=== PATIENT | female | born 1950 | race Caucasian/White ===

== ENCOUNTER 2019-07-09 12:36 | Outpatient (CLI) | payer MEDICARE, SELFPAY ==
--- NOTE | 2019-07-09 | XR_ITS ---
WS: [id number] HIP WITH PELVIS LEFT TECHNIQUE: 3 views of the left hip with pelvis CLINICAL INFORMATION: LT HIP PAIN, NO KNOWN INJURY COMPARISON: None. FINDINGS: Moderate degenerative arthritis left hip with joint space narrowing. Normal superior and inferior pub ic rami. Normal femoral neck. Proximal femoral shaft is normal. XR/XR hip LT 2-3V wo/w pel* [id number] IMPRESSION: Moderate degenerative arthritis left hip with joint space narrowing. No acute f ractures.
== END 2019-07-09 12:37 | disposition home or self-care (01) ==
LOC: RADOUTREAD 13:23
PROVIDERS: Family Provider Family Medicine; PCP Family Medicine; Visit Provider Family Medicine
DX: Z76.89 Persons encountering health services in other specified circumstances (principal)

== ENCOUNTER 2020-01-25 22:46 | Emergency (ER) | payer MEDICARE, SELFPAY ==
[2020-01-25 22:50] VITALS: BP 99/61; PULSE 67; RESP 18; TEMP 35.8; O2SAT 96; BMI 29.0
--- NOTE | 2020-01-25 23:00 | W.ED.ALLEREA ---
HPI - Allergic Reaction General: Chief complaint: Allergic Reaction Stated complaint: stung, throat swelling Time Seen by Provider: 01/25/20 22:50 Source: patient Mode of arrival: ambulatory Limitations: no limitations History of Present Illness: HPI narrative: Patient is a 69-year-old female who presents to ED today for evaluation following several wasp stings. Patient tells me she was stung 3 times by a wasp or bee a few hours ago. Patient initially tells me incident happened approximately 5 hours ago around 6 PM but then later tells me around dark which would be closer to 9 PM. She states after she was stung she did not have any immediate symptoms. She went inside and took Benadryl. She states she went to sleep and later woke up feeling like she was having difficulty swallowing her secretions. She has no chest pain, shortness of breath, rash, swelling to her face/lip/mouth. No previous anaphylactic reactions. MD complaint: allergic reaction Onset (ago): hour(s) Exposure: insect bite (sting) Associated symptoms: Deny nausea or vomiting Treatment prior to arrival: benadryl Previous Allergic Reaction History: none Review of Systems Const: Denies: fever(s) or chills Eyes: Denies: change in vision, blurry vision, photophobia, floaters or seeing flashes ENMT: Reports: other (reports feeling as if her throat is swelling); Denies: throat pain, odynophagia, mouth pain or swelling of lips/tongue Card: Denies: chest pain or palpitations Resp: Denies: dyspnea GI: Denies: nausea or vomiting Skin/Breast: Reports: other (wasp/bee stings) Neuro: Denies: headache(s), numbness in extremities, weakness in extremities or sensory changes Physical Exam Const: COMMON NORMALS: no acute distress, average body habitus, patient oriented x3, no limitations, healthy appearing, alert and well nourished ORIENTATION/CONSCIOUSNESS: Yes oriented to person, Yes oriented to place and Yes oriented to time HENMT: FACE & SINUS: normal facial exam MOUTH: other (no angioedema) Neck/C-Spine: COMMON NORMALS: full ROM OTHER: no swelling Resp: COMMON NORMALS: normal respiratory effort and clear to auscultation bilaterally AUSCULTATION: clear to auscultation bilaterally Cardio: COMMON NORMALS: regular rate and regular rhythm RATE: regular rate RHYTHM: regular rhythm Extremity: COMMON NORMALS: normal to inspection OTHER: see skin assessment Neuro: COMMON NORMALS: patient oriented x3 SENSORIUM/ORIENTATION: Yes alert, Yes oriented to person, Yes oriented to place and Yes oriented to time Skin: OTHER: wasp/bee stings to R lateral breast, R upper arm, and L hand; minimal erythema noted Course Vital Signs: Vital signs: Vital Signs Temperature 96.4 F L 01/25/20 22:50 Pulse Rate 67 01/26/20 01:29 Respiratory Rate 15 01/26/20 01:29 Blood Pressure 95/61 01/26/20 01:29 Pulse Oximetry 94 01/26/20 01:29 MDM - Allergic Reaction MDM Narrative: Medical decision making narrative: After cocktail of benadryl, steroids, and pepcid, pt states her throat feels much better and no longer having trouble swallowing. She did begin feeling very anxious, complaining of RLS which she has a hx of. She reports taking benadryl previously and it made her feel very anxious. She was given ativan which did not seem to help. Given haldol which did seem to help a little. I have no concern for anaphylaxis at this time. Patient is stable for DC. Discharge Plan Discharge Patient Disposition: Home Clinical Impression: Accidental wasp sting Allergic reaction Qualifiers: Encounter type: initial encounter Qualified Code(s): T78.40XA - Allergy, unspecified, initial encounter Condition: Stable Discharge Orders: Discharge Order (Routine); Ordered 01/26/20 Ordered By: Darlyn De Leon Referrals: Iam Tyson MD [Primary Care Provider] - Patient Instructions: Allergic Reaction, Insect Bite or Sting (ED) Discharge Date/Time: 01/26/20 01:30 Coding Level of Care Code ED Chrome Worker for Chg Fwd Exam Detailed
[2020-01-25] MEDS: diphenhydrAMINE 50 mg/mL SDV 1mL IVP (23:09)
[2020-01-25 23:10] VITALS: BP 89/57; PULSE 67; RESP 14; O2SAT 92
[2020-01-25] MEDS: famotidine 20 mg/2 mL INJ 40 MG IVP (23:11)
[2020-01-25] MEDS: sodium chloride 0.9% 1,000 ML 999 ML IV (23:29)
[2020-01-25] MEDS: LORazepam 2 mg/mL INJ 1 mL 0.5 MG IVP (23:33)
[2020-01-26] MEDS: haloperidol inj 5 mg/mL INJ 1 mL IVP (01:06)
[2020-01-26 01:07] VITALS: BP 116/63; PULSE 80; RESP 20; O2SAT 98
[2020-01-26 01:29] VITALS: BP 95/61; PULSE 67; RESP 15; O2SAT 94
== END 2020-01-26 01:30 | disposition home or self-care (01) ==
PROVIDERS: Emergency Provider Physician Assistant; PCP Family Medicine
DX: T63.461A Toxic effect of venom of wasps, accidental (unintentional), initial encounter (principal)
CPT/HCPCS: 12345; 96361; 96374; 96375; 99283; J1200; J1630; J2060; J2930; J3490; J7030

== ENCOUNTER 2020-08-16 13:30 | Outpatient (CLI) | payer MEDICARE, SELFPAY ==
--- NOTE | 2020-08-16 13:00 | CT_ITS ---
WS: [id number] CT ABDOMEN PELVIS TECHNIQUE: Contrast-enhanced CT of the abdomen and pelvis with coronal and sagittal reformatted image s. CLINICAL INFORMATION: DIFFUSE ABDOMINAL PAIN COMPARISON: CT 12 10,018 and 3 20,015 DLP: 1153.[address] scans at [facility] use at least one of these dose optimization techniques: automat ed exposure control; mA and/or kV adjustment per patient size (includes targeted exams where dose is matched to clinical indication); or iterative reconstruction. FINDINGS: Diffuse fatty infiltration of the liver. Normal portal vein and splenic vein. Prior cholecystectomy. Small splenule. Adrenal glands are normal. Normal renal parenchymal enhancement. No hydronephrosis. M ild renal cortical atrophy. Normal GE junction. Lung bases are well aerated. Prior postoperative borjas ges hysterectomy. Normal pancreas. Normal caliber abdominal aorta. No abdominal or pelvic lymphadenopathy. No high-grad e small or large bowel obstruction.Mild segmental narrowing and wall thickening involving the right h epatic flexure and right ascending colon. Some this may be due to spasm but is nonspecific and recomm end further evaluation with colonoscopy. Fat-containing umbilical hernia. No hydronephrosis in either kidney. No hydronephrosis. Mild bilatera l renal cortical atrophy. Prior pedicle screw fixation L4-5 with interbody fusion. Advanced disc spac e narrowing L3-4. CT/CT abdomen pelvis w con* [id number] IMPRESSION: 1. Mild diffuse fatty infiltration of the liver. Prior cholecystectomy. 2. Normal caliber abdominal aorta. Mild aortic calcification. 3. Mild bilateral renal cortical atrophy. No hydronephrosis. 4. Mild segmental luminal narrowing and wall thickening involving the right he patic flexure and right ascending colon. Some this may be due to spasm but is n onspecific and recommend further evaluation with colonoscopy. Neoplasm not excl uded. 5. No abdominal or pelvic lymphadenopathy. 6. Normal sigmoid colon. No evidence of small or large bowel obstruction. 7. Tiny fat-containing umbilical hernia. 8. Lumbar scoliosis with prior pedicle screw fixation L4-5.
[2020-08-16] MEDS: iohexol 300 mg/mL 50 mL Btl IV (13:42)
[2020-08-16] MEDS: iodixanol 320 mg/mL 100mL Btl IV (14:29)
== END 2020-08-16 13:31 | disposition home or self-care (01) ==
LOC: RADWPI 13:36
PROVIDERS: PCP Family Medicine; Visit Provider Family Medicine
DX: R10.84 Generalized abdominal pain (principal); M41.86 Other forms of scoliosis, lumbar region; K42.9 Umbilical hernia without obstruction or gangrene; N26.1 Atrophy of kidney (terminal); K76.0 Fatty (change of) liver, not elsewhere classified
CPT/HCPCS: 74177; Q9967

== ENCOUNTER 2021-06-27 09:04 | Outpatient (CLI) | payer MEDICARE, SELFPAY | END 2021-06-27 09:05 | disposition home or self-care (01) | LOC: LAB 09:12 | PROVIDERS: PCP Family Medicine; Visit Provider Family Medicine | DX: R19.7 Diarrhea, unspecified (principal) | CPT/HCPCS: 87493; 87506 ==

== ENCOUNTER 2021-11-28 07:00 | Outpatient (CLI) | payer MEDICARE, SELFPAY ==
--- NOTE | 2021-11-28 | XR_ITS ---
WS: [id number] Left hand, 3 views, 11/28/2021 Clinical Data: BILATERAL HAND PAIN Comparison: None. Findings: No fractures or dislocations are seen. The soft tissues are unremarkable. The joint spaces are normal XR/XR hand LT min 3V* [id number] Impression: Negative left hand.
--- NOTE | 2021-11-28 | XR_ITS ---
WS: [id number] Right hand, 3 views, 11/28/2021 Clinical Data: BILATERAL HAND PAIN Comparison: None. Findings: No fractures or dislocations are seen. The soft tissues are unremarkable. The joint space s are normal XR/XR hand RT min 3V* [id number] Impression: Negative right hand.
--- NOTE | 2021-11-28 | XR_ITS ---
WS: [id number] AP standing views of both knees, 11/28/2021 Clinical Data: KNEE PAIN BILATERAL Comparison: None. Findings: The AP view of the left knee shows medial joint compartment narrowing with spurring of the medial and lateral femoral condyles and medial and lateral tibial plateaus. No fractures or dislocations are se en. AP view of the right knee shows medial and lateral joint compartment narrowing with spurring of the m edial and lateral tibial plateau and the lateral and medial femoral condyle. No fractures or dislocat ions are seen. XR/[place] [id number] Impression: Moderate osteoarthritis of both knees.
== END 2021-11-28 07:01 | disposition home or self-care (01) ==
LOC: RADOUTREAD 11-29 07:09
PROVIDERS: PCP Family Medicine; Visit Provider Family Medicine
DX: M25.561 Pain in right knee (principal); M25.562 Pain in left knee; M79.641 Pain in right hand; M79.642 Pain in left hand; M17.0 Bilateral primary osteoarthritis of knee
CPT/HCPCS: 73130; 73565

== ENCOUNTER 2023-03-05 13:20 | Outpatient (CLI) | payer MEDICARE, SELFPAY ==
--- NOTE | 2023-03-05 13:36 | USCV_ITS ---
Ana Grissom Age: 72 Gender: F : 1950 Exam Date: 03/05/2023 14:15 Ordering Phys: Iam Tyson MD Technologist: Nik Mena Exam Location: [facility] [place] Indication: mitral regur BP: 110 / 70 HR: 57 Rhythm: Sinus Technical Quality: Adequate MEASUREMENTS (Male / Female) Normal Values 2D ECHO LV Diastolic Diameter PLAX 4.6 cm 4.2 - 5.9 / 3.9 - 5.3 cm LV Systolic Diameter PLAX 2.8 cm IVS Diastolic Thickness 1.1 cm 0.6 - 1.0 / 0.6 - 0.9 cm IVS Systolic Thickness 1.1 cm LVPW Diastolic Thickness 1.0 cm 0.6 - 1.0 / 0.6 - 0.9 cm LVPW Systolic Thickness 1.4 cm LVOT Diameter 2.0 cm LV Ejection Fraction 2D Teich 70.8 % LV Ejection Fraction MOD 2C 79.2 % LV Ejection Fraction 2C AL 79.9 % LA Diameter 4.2 cm Aorta at Sinotubular Diameter 3.2 cm IVC Diameter 2.1 cm M-MODE Aortic Annulus Diameter 3.3 cm LA Ao Ratio MM 1.2 MV E Point Septal Separation 0.9 cm DOPPLER LVOT Peak Velocity 102.0 cm/s MV Area PHT 5.0 cm squared Mitral E to A Ratio 0.8 MV E' Velocity 35.0 cm/s Mitral E to MV E' Ratio 8.3 Mitral E to LV E' Lateral Ratio 9.4 Mitral E to LV E' Septal Ratio 7.5 TR Peak Velocity 263.0 cm/s TR Peak Gradient 27.7 mmHg Right Atrial Pressure 3.0 mmHg Pulmonary Artery Systolic Pressu 30.7 mmHg RV Acceleration Time 0.1 s FINDINGS Left Ventricle Normal left ventricular size and systolic function, EF 77 %. No regional wall motion abnormalities. Grade I/IV diastolic dysfunction (abnormal relaxation filling pattern), normal to mildly elevated filling pressures. Right Ventricle The right ventricle is normal in size and function. Right Atrium The right atrium is normal in size. Left Atrium The left atrium is normal in size. Mitral Valve moderate mitral valve regurgitation. Aortic Valve No gross abnormalities noted Tricuspid Valve No gross abnormalities noted Pulmonic Valve No gross abnormalities noted Pericardium Normal pericardium without effusion. Aorta Normal ascending aorta dimension. IVC Normal inferior vena cava. CONCLUSIONS Normal left ventricular size and systolic function, EF 77 %. No regional wall motion abnormalities. Grade I/IV diastolic dysfunction (abnormal relaxation filling pattern), normal to mildly elevated filling . Moderate mitral valve regurgitation. There is no pericardial effusion. There are no intracardiac masses. No previous study is available for comparison Dr Tutu Cisneros MD FAC (Electronically Signed) Final Date: 05 March 2023 20:51 S
== END 2023-03-05 13:21 | disposition home or self-care (01) ==
PROVIDERS: PCP Family Medicine; Visit Provider Family Medicine
DX: I34.0 Nonrheumatic mitral (valve) insufficiency (principal); I51.89 Other ill-defined heart diseases
CPT/HCPCS: 93306

== ENCOUNTER 2023-10-14 11:38 | Outpatient (CLI) | payer MEDICARE, SELFPAY ==
--- NOTE | 2023-10-14 11:43 | CT_ITS ---
WS: [id number] CTA THORACIC AORTA WITH AND WITHOUT CONTRAST HISTORY: ANEURYSM OF THORACIC AORTA TECHNIQUE: CT imaging of the thorax is performed with and without contrast. After noncontrast imaging is performed, CT angiogram is performed during injection of Omnipaque 350; 100 mL IV.. Sagittal and coronal reconstructions, sagittal and coronal MIP imaging is submitted. All CT scans at [facility] use at least one of these dose optimization techniques: automated exposure control; mA and/or k V adjustment per patient size (includes targeted exams where dose is matched to clinical indication); or iterative reconstruction. DLP: 631.04 mGy.cm COMPARISON: None available. Opacification of the thoracic aorta. No aneurysm of the ascending aorta. Maximum transverse diameter of 3.9 cm. There is no dissection or aneurysm. Mild atherosclerotic plaque through the arch. Descendi ng aorta is normal caliber, 2.3 cm. Normal aortic annulus and sinotubular junction. No dissection. Great vessels arise normally from the arch. Mild atherosclerotic plaque. Lungs are clear. No pericardial or pleural effusions. Mild cardiomegaly. Scattered coronary artery ca lcifications most significant in the LAD. No mediastinal or hilar adenopathy. Prior cholecystectomy. No adrenal mass. No chest wall abnormality. CT/CT angio chest [id number] IMPRESSION: 1. No thoracic aortic aneurysm. 2. Mild ectasia ascending aorta with a maximal diameter of 3.9 cm. 3. Mild atherosclerosis thoracic aorta through the arch. 4. Mild coronary artery calcifications. 5. Prior cholecystectomy.
[2023-10-14 12:23] LABS: Blood Urea Nitrogen 6 mg/dL (8-23)
[2023-10-14] MEDS: iohexol 350 mg/mL 500 mL Btl (per mL) IV (12:31)
== END 2023-10-14 11:39 | disposition home or self-care (01) ==
PROVIDERS: Radiology Diagnostic Radiology; PCP Family Medicine; Visit Provider Family Medicine
DX: I77.810 Thoracic aortic ectasia (principal); I25.10 Atherosclerotic heart disease of native coronary artery without angina pectoris
CPT/HCPCS: 71275; 82565; 84520; Q9967

== ENCOUNTER → 2023-12-31 15:01 | Outpatient (BNVA) | payer MEDICARE, SELFPAY | PROVIDERS: PCP Family Medicine; Visit Provider Podiatrist Foot & Ankle Surgery | DX: M25.571 Pain in right ankle and joints of right foot (principal); R50.9 Fever, unspecified; M25.471 Effusion, right ankle | CPT/HCPCS: 20605; 36415; 73610; 80053; 80503; 82164; 85025; 85651; 86160; 86162; 86235; 86255; 86376; 86592; 86618; 86635; 86664; 86665; 86666; 86668; 86705; 86706; 86709; 86757; 86803; 87040; 87070; 87075; 87205; 87340; 87806; 89050; 99204; 99215 ==

== ENCOUNTER 2024-01-01 12:11 | Outpatient (CLI) | payer MEDICARE, SELFPAY ==
[2024-01-03 12:59] LABS: Quantiferon Mitogen 5.91 IU/mL; Quantiferon Nil 0.02 IU/mL; Quantiferon Plus TB1 0.01 IU/mL; Quantiferon Plus TB2 0.01 IU/mL; Quantiferon TB Gold NEGATIVE (NEGATIVE)
== END 2024-01-01 12:12 | disposition home or self-care (01) ==
PROVIDERS: PCP Family Medicine; Visit Provider Student in an Organized Health Care Education/Training Program
DX: Z21 Asymptomatic human immunodeficiency virus [HIV] infection status (principal); R50.9 Fever, unspecified
CPT/HCPCS: 36415; 86480

== ENCOUNTER 2024-01-15 13:00 | Outpatient (CLI) | payer MEDICARE, SELFPAY ==
--- NOTE | 2024-01-15 13:00 | CTR_ITS ---
PROCEDURE INFORMATION: Exam: CT Chest Without Contrast; Diagnostic Exam date and time: 01/15/2024 1:25 PM Age: 73 years old Clinical indication: Fever; Additional info: Fuo, fever of unknown origin x 4 weeks, CT cap to assess for TECHNIQUE: Imaging protocol: Diagnostic computed tomography of the chest without contrast. Radiation optimization: All CT scans at this facility use at least one of these dose optimization techniques: automated exposure control; mA and/or kV adjustment per patient size (includes targeted exams where dose is matched to clinical indication); or iterative reconstruction. COMPARISON: CT angio chest [id number] 10/14/2023 12:23 PM RADIATION DOSE METRICS: Total DLP (mGy-cm): 575.51 FINDINGS: Lungs: Unremarkable. No consolidation. No masses. Pleural spaces: Unremarkable. No pneumothorax. No pleural effusion. Heart: Unremarkable. No cardiomegaly. No pericardial effusion. Lymph nodes: There are a few small mediastinal lymph nodes. No enlarged nodes are appreciated. Vasculature: The ascending aorta is mildly dilated measuring a proximally 4.1 cm in size. The descending thoracic aorta is normal in caliber. There is calcified plaque involving the aorta and coronary vessels. Bones/joints: Unremarkable. No acute fracture. Soft tissues: Unremarkable. PROCEDURE INFORMATION: Exam: CT Abdomen Without Contrast Exam date and time: 01/15/2024 1:25 PM Age: 73 years old Clinical indication: Fever; Additional info: Fuo, fever of unknown origin x 4 weeks, CT cap to assess for TECHNIQUE: Imaging protocol: Computed tomography of the abdomen without contrast. Radiation optimization: All CT scans at this facility use at least one of these dose optimization techniques: automated exposure control; mA and/or kV adjustment per patient size (includes targeted exams where dose is matched to clinical indication); or iterative reconstruction. COMPARISON: CT abdomen pelvis w con* [id number] 08/16/2020 2:27 PM RADIATION DOSE METRICS: Total DLP (mGy-cm): 575.51 FINDINGS: Liver: Normal. No mass. Gallbladder and biliary ducts: There are surgical clips within the gallbladder fossa. Pancreas: Normal. No ductal dilation. Spleen: Normal. No splenomegaly. Adrenal glands: Normal. No mass. Kidneys and ureters: Normal. No hydronephrosis. Stomach and bowel: Visualized stomach and bowel are unremarkable. No obstruction. No mucosal thickening. Intraperitoneal space: Unremarkable. No free air. No significant fluid collection. Vasculature: The aorta is normal in caliber. There is calcified plaque involving the aorta and its branch vessels. Lymph nodes: Unremarkable. No enlarged lymph nodes. Bones/joints: There are postoperative changes involving the lower lumbar spine. No blastic or lytic lesions are identified. Soft tissues: Unremarkable. CT/CT chest abd [id number] IMPRESSION: 1. Atherosclerosis with mild aneurysmal dilatation involving the ascending aorta which measures 4.1 cm in maximal dimension. IMPRESSION: 1. No definite acute findings.
== END 2024-01-15 13:01 | disposition home or self-care (01) ==
PROVIDERS: PCP Family Medicine; Visit Provider Student in an Organized Health Care Education/Training Program
DX: R50.9 Fever, unspecified (principal); I70.0 Atherosclerosis of aorta
CPT/HCPCS: 71250; 74150

== ENCOUNTER → 2024-03-03 14:10 | Outpatient (BNVA) | payer MEDICARE, SELFPAY | PROVIDERS: PCP Family Medicine; Visit Provider Internal Medicine Rheumatology | DX: M19.90 Unspecified osteoarthritis, unspecified site (principal); Z87.39 Personal history of other diseases of the musculoskeletal system and connective tissue; Z79.899 Other long term (current) drug therapy; R76.8 Other specified abnormal immunological findings in serum; Z71.85 Encounter for immunization safety counseling | CPT/HCPCS: 36415; 72100; 72202; 73130; 73630; 84550; 86480; 86704; 86803; 86812; 87340; 99205 ==

== ENCOUNTER 2024-04-01 10:16 | Outpatient (CLI) | payer MEDICARE, SELFPAY ==
[2024-04-01 11:05] LABS: Eosinophils # 0.3 10^3/uL (0.0-0.8); Eosinophils % 6.4 %; Hematocrit 43.6 % (36-47); Lymphocytes # 1.3 10^3/uL (0.8-4.8); Lymphocytes % 29.7 %; Mean Corpuscular HGB Conc 32.1 g/dL (30-55); Mean Corpuscular Hemoglobin 28.8 pg (27-33); Mean Corpuscular Volume 89.7 fl (85-98); Mean Platelet Volume 9.9 fL (7.4-10.4); Monocytes # 0.3 10^3/uL (0.2-0.9); Monocytes % 6.4 %; Neutrophils # 2.36 10^3/uL (1.8-7.7); Nucleated Red Blood Cells % 0 %; Platelet Count 179 10^3/cmm (157-399); Red Blood Count 4.86 10^6/uL (3.85-5.65); Red Cell Distribution Width 13.2 % (12.1-15.1); White Blood Count 4.21 10^3/uL (3.29-11.43)
[2024-04-01 11:08] LABS: Erythrocyte Sedimentation Rate 1 mm/hr (0-15)
[2024-04-01 11:24] LABS: Alanine Aminotransferase 49 U/L (0-33); Albumin Level 4.3 g/dL (3.5-5.2); Alkaline Phosphatase 132 U/L (35-105); Aspartate Amino Transferase 36 U/L (0-32); C Reactive Protein 8.4 mg/L (0.0-4.9); Globulin 2.2 g/dL (1.3-4.6); Total Bilirubin 0.4 mg/dL (0.15-1.2); Total Protein 6.5 g/dL (6.6-8.7)
== END 2024-04-01 10:17 | disposition home or self-care (01) ==
LOC: LAB 10:17
PROVIDERS: PCP Family Medicine; Visit Provider Internal Medicine Rheumatology
DX: Z79.899 Other long term (current) drug therapy (principal); M19.90 Unspecified osteoarthritis, unspecified site
CPT/HCPCS: 36415; 80076; 82565; 84550; 85025; 85651; 86140

== ENCOUNTER → 2024-05-11 12:58 | Outpatient (BNVA) | payer MEDICARE, SELFPAY | PROVIDERS: PCP Family Medicine; Visit Provider Internal Medicine Rheumatology | DX: Z79.899 Other long term (current) drug therapy (principal); Z87.39 Personal history of other diseases of the musculoskeletal system and connective tissue; R76.8 Other specified abnormal immunological findings in serum; Z71.85 Encounter for immunization safety counseling; M10.9 Gout, unspecified; M00.80 Arthritis due to other bacteria, unspecified joint | CPT/HCPCS: 99214 ==

== ENCOUNTER 2024-09-17 07:44 | Outpatient (CLI) | payer MEDICARE, SELFPAY ==
--- NOTE | 2024-09-17 07:49 | MR_ITS ---
WS: [id number] MRI/MRCP OF THE ABDOMEN WITHOUT GADOLINIUM ENHANCEMENT TECHNIQUE: Coronal T2 Fase BH, Axial T2 Fase BH, Axial T2 FS BH, Zxial 3D Bronson BH, Axial DWI BH, 2D MRCP Radial BH, 3D MRCP (Resp), and Axial 3D Dyn BH Post sequences. CLINICAL INFORMATION: LIVER LESION COMPARISON: Ultrasound 09/03/2024 FINDINGS: Some images are degraded due to body habitus and breath-holding artifact. Hepatomegaly. Diffuse fatty infiltration of liver. No visualized liver lesions to correspond to the ultrasound findings. No visualized liver lesions in the RIGHT or LEFT hepatic lobe. Some images of the liver are degraded due to breath- hold artifact. Prior cholecystectomy. Portal vein and splenic vein are patent. Adrenal glands are normal. No hydronephrosis. Normal visualized pancreas. Small esophageal hiatal hernia. Normal visualized spleen. MR/MR abdomen wo/w con* [id number] Impression: No hepatic lesions corresponding to the ultrasound findings. Recommend 3-month follow-up ultrasound of the liver for comparison
[2024-09-17] MEDS: gadobenate dimeglumine 20 mL vial 16 ML IV (08:36)
== END 2024-09-17 07:45 | disposition home or self-care (01) ==
LOC: RAD 07:47
PROVIDERS: PCP Family Medicine; Visit Provider Family Medicine
DX: K76.9 Liver disease, unspecified (principal); R16.0 Hepatomegaly, not elsewhere classified; K76.0 Fatty (change of) liver, not elsewhere classified; Z90.49 Acquired absence of other specified parts of digestive tract; K44.9 Diaphragmatic hernia without obstruction or gangrene
CPT/HCPCS: 74183; A9577

== ENCOUNTER → 2024-10-12 12:52 | Outpatient (BNVA) | payer MEDICARE, SELFPAY | PROVIDERS: PCP Family Medicine; Visit Provider Internal Medicine Rheumatology | DX: M19.90 Unspecified osteoarthritis, unspecified site (principal); Z79.899 Other long term (current) drug therapy; Z87.39 Personal history of other diseases of the musculoskeletal system and connective tissue; R76.8 Other specified abnormal immunological findings in serum; Z71.85 Encounter for immunization safety counseling | CPT/HCPCS: 36415; 80076; 82565; 83520; 84550; 85025; 85651; 86140; 86200; 86431; 86480; 86704; 86803; 87340; 99214 ==

== ENCOUNTER 2025-02-03 08:15 | Emergency (ER) | payer MEDICARE, SELFPAY ==
--- NOTE | 2025-02-03 08:17 | XR_ITS ---
WS: [id number] KUB, AP portable supine, 02/03/2025 Clinical Data: Abdominal pain/constipation Comparison: KUB, 09/20/2023 Findings: No abnormal intraabdominal masses or calcifications are seen. There is no dilatated small bowel or evidence of obstruction. There are clothing items overlying the upper abdomen and left side of the abdomen. There are clips in the right upper quadrant from a cholecystectomy. There is moderate fecal material throughout the colon. There is a dextroscoliosis with a posterior lumbar fusion at L4-L5. XR/XR KUB portable [id number] Impression: Moderate fecal material in the colon.
--- OUTSIDE RECORDS SUMMARY | 2025-02-03 08:22 | XMS_ITS | Clinical Summary ---
Author Organization [facility] Address [address] [facility] [facility] Attn: [place] [address] Care Team Providers Care Customer Service Driver Name Role Phone Iam Tyson MD Primary Care Provider [phone] Allergies Active Allergy Reactions Criticality Noted Date Comments Sulfa (Sulfonamide Antibiotics) Unknown 02/15 Medications OTHER Prednisolone 1%, Gatifloxacin 0.5%, Ketorolac 0.5% Start 3 days before surgery 1 drop 3 times a day in surgical eye for 24 days.. 3.5 mL 1 8 Active sodium chloride (DEAN-128) 5 % solution Administer 1 Drop in both eyes 3 times daily. 15 mL 3 8 Active amLODIPine (NORVASC) 2.5 mg tablet Take 2.5 mg by mouth daily. 8 Active cyanocobalamin (VITAMIN B-12) 100 mcg tablet Take 100 mcg by mouth daily. 8 Active ketotifen (ZADITOR) 0.025% solution 8 Active tiZANidine (ZANAFLEX) 4 mg Tablet Take 4 mg by mouth every 6 hours as needed for Spasm. 8 Active aspirin (ECOTRIN EC) 325 mg Tablet, Delayed Release (E.C.) Take 325 mg by mouth daily. 8 Active metoprolol tartrate (LOPRESSOR) 50 mg tablet Take 50 mg by mouth 2 times daily. 8 Active spironolactone (ALDACTONE) 100 mg tablet Take 100 mg by mouth daily. 8 Active melatonin 5 mg Tablet Take by mouth nightly as needed. 8 Active peg 400-propylene glycol (SYSTANE) 0.4-0.3 % solution 1 Drop every 2 hours. Active raNITIdine (ZANTAC) 150 mg tablet Take 150 mg by mouth 2 times daily. Active escitalopram oxalate (LEXAPRO) 10 mg tablet Take 10 mg by mouth daily. Active ezetimibe-simva statin (VYTORIN) 10-10 mg tablet Take 1 Tablet by mouth daily at bedtime. Active ALPRAZolam (XANAX) 0.5 mg tablet Take 0.5 mg by mouth nightly as needed for Anxiety. Active Levothyroxine 25 mcg Capsule Take by mouth daily before breakfast. Active Social History Tobacco Use Types Packs/Day Years Used Date Smoking Tobacco: Never Smokeless Tobacco: Never Alcohol Use Standard Drinks/Week Comments No 0 (1 standard drink = 0.6 oz pur e alcohol) Comments Unknown Sex and Gender Information Value Date Recorded Sex Assigned at Not on file Legal Sex Female 3:53 PM [employer] Gender Identity Not on file Sexual Orientation Not on file Last Filed Vital Signs Vital Sign Reading Time Taken Comments Blood Pressure 142/96 04/02/2018 4:35 PM CDT Pulse 64 04/02/2018 3:03 PM CDT Temperature 36.7 C (98.1 F) 04/02/2018 3:03 PM CDT Respiratory Rate 18 04/02/2018 12:00 PM CDT Oxygen Saturation - - Inhaled Oxygen Concentration - - Weight 78 kg (172 lb) 04/02/2018 4:35 PM CDT Height 174 cm (5' 8.5 ) 04/02/2018 4:35 PM CDT Body Mass Index 25.77 04/02/2018 4:35 PM CDT Plan of Treatment Health Maintenance Due Date Last Done Comments DTAP/TDAP/TD VACCINES (1 - Tdap) 1968 FIT-DNA Q 3 years 1994 FIT/FOBT Q 1 year 1994 Flex Sig/CT Colonography Q 5 years 1994 PNEUMOCOCCAL VACCINE 50+ YEA RS (1 of 1 - PCV) 1999 ZOSTER VACCINE (1 of 2) 1999 OSTEOPOROSIS SCREENING 2014 RSV VACCINE (60+ or ) (1 - 1-dose 75+ series) 2024 INFLUENZA VACCINE (#1) 2025 COLORECTAL SCREENING 10/06/2033 10/07/2023, 10/07/19 24 Colorectal Cancer Screening 10/06/2033 Medical Devices Implanted Type Area Case Mgr Device Identifier Shelf Expiration Date Model / Serial / Lot Lens Io Tecnis 1pc 22.5 [id number] - [id number] Implanted:Qty: 1 on 03/19/2018 by Simone Redding MD Eye Right: Eye [employer] 11/19/2021 [id number] / [id number] / Lens Io Tecnis 1pc 23.5 [id number] - [id number] Implanted:Qty: 1 on 04/02/2018 by Simone Redding MD Eye Left: Eye [employer] 12/03/2021 [id number] / [id number] / Care Teams Customer Service Driver Relationship Specialty Start Date End Date Iam Tyson MD [address] [phone] PCP - General Family Practice 03/06/18
--- OUTSIDE RECORDS SUMMARY | 2025-02-03 08:22 | XMS_ITS | Clinical Summary ---
Author Organization [facility] Address [address] [place] [address] Care Team Providers Care Superintendent Name Role Phone Iam Tyson MD Primary Care Provider [phone] Allergies Active Allergy Reactions Criticality Noted Date Comments Sulfa (Sulfonamide Antibiotics) Unknown 02/15 Medications metoprolol tartrate (LOPRESSOR) 50 mg tablet Take 50 mg by mouth 2 times daily. Active amLODIPine (NORVASC) 2.5 mg tablet Take 2.5 mg by mouth daily. Active spironolactone (ALDACTONE) 100 mg tablet Take 100 mg by mouth daily. Active Levothyroxine 25 mcg Capsule Take by mouth daily before breakfast. Active ezetimibe-simva statin (VYTORIN) 10-10 mg tablet Take 1 Tablet by mouth daily at bedtime. Active escitalopram oxalate (LEXAPRO) 10 mg tablet Take 10 mg by mouth daily. Active tiZANidine (ZANAFLEX) 4 mg Tablet Take 4 mg by mouth every 6 hours as needed for Spasm. Active ALPRAZolam (XANAX) 0.5 mg tablet Take 0.5 mg by mouth nightly as needed for Anxiety. Active melatonin 5 mg Tablet Take by mouth nightly as needed. Active cyanocobalamin (VITAMIN B-12) 100 mcg tablet Take 100 mcg by mouth daily. Active raNITIdine (ZANTAC) 150 mg tablet Take 150 mg by mouth 2 times daily. Active aspirin (ECOTRIN EC) 325 mg Tablet, Delayed Release (E.C.) Take 325 mg by mouth daily. Active ketotifen (ALAWAY) 0.025 % (0.035 %) solution Active peg 400-propylene glycol (SYSTANE) 0.4-0.3 % solution 1 Drop every 2 hours. Active OTHER Prednisolone 1%, Gatifloxacin 0.5%, Ketorolac 0.5% Start 3 days before surgery 1 drop 3 times a day in surgical eye for 24 days.. 3.5 mL 1 8 Active sodium chloride (DEAN-128) 5 % solution Administer 1 Drop in both eyes 3 times daily. 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[employer]ER Gender Identity Not on file Sexual Orientation Not on file Last Filed Vital Signs Vital Sign Reading Time Taken Comments Blood Pressure 142/96 04/02/2018 4:35 PM CDT Pulse 64 04/02/2018 3:03 PM CDT Temperature 36.7 C (98.1 F) 04/02/2018 3:03 PM CDT Respiratory Rate 18 04/02/2018 12:00 PM CDT Oxygen Saturation 97% 04/02/2018 3:03 PM CDT Inhaled Oxygen Concentration - - Weight 78 kg (172 lb) 04/02/2018 4:35 PM CDT Height 174 cm (5' 8.5 ) 04/02/2018 4:35 PM CDT Body Mass Index 25.77 04/02/2018 4:35 PM CDT Plan of Treatment Health Maintenance Due Date Last Done Comments DTAP/TDAP/TD VACCINES (1 - Tdap) 1968 COLORECTAL SCREENING 1994 Colorectal Cancer Screening 1994 FIT-DNA Q 3 years 1994 FIT/FOBT Q 1 year 1994 Flex Sig/CT Colonography Q 5 years 1994 PNEUMOCOCCAL VACCINE 50+ YEARS (1 of 1 - PCV) 06/23/19 00 ZOSTER VACCINE (1 of 2) 1999 OSTEOPOROSIS SCREENING 2014 RSV VACCINE (60+ or ) (1 - 1-dose 75+ series) 2024 INFLUENZA VACCINE (#1) 2025 Medical Devices Implanted Type Area Compliance Tester Device Identifier Shelf Expiration Date Model / Serial / Lot Lens Io Tecnis 1pc 22.5 [id number] - [id number] Implanted:Qty: 1 on 03/19/2018 by Simone Redding MD at [facility] Right: Eye [employer] 11/19/2021 [id number] / [id number] / Lens Io Tecnis 1pc 23.5 [id number] - [id number] Implanted:Qty: 1 on 04/02/2018 by Simnoe Redding MD at [facility] Left: Eye [employer] 12/03/2021 [id number] / [id number] / Insurance [facility] Advance Directives For more information, please contact: [phone] * Full Code (Latest Code Status on File) Date Activated Date Inactivated Comments 04/02/2018 11:59 AM 04/02/2018 5:26 PM * Full Code Date Activated Date Inactivated Comments 03/19/2018 8:53 AM 03/19/2018 1:38 PM Care Teams Superintendent Relationship Specialty Start Date End Date Iam Tyson MD [address] [place] [id number] PCP - General Family Practice 03/06/18
[2025-02-03 08:36] VITALS: PULSE 58; RESP 18; TEMP 36.5; O2SAT 95
--- NOTE | 2025-02-03 08:45 | W.ED.ABDPA2 ---
HPI - Abdominal Pain General: Chief Complaint: Abdominal Pain Stated Complaint: backed up no bowl movements Time Seen by Provider: 02/03/25 08:17 History of Present Illness: 74-year-old female presents emergency room with complaints constipation. She states she tried different [id number] medications with no relief she said she has not had a bowel movement in 10 or more days. She has not had any vomiting. She states she has alpha gal. She is worried that if she has surgery she will spontaneously evacuate her bowels. However when I ask her she does not have any surgery scheduled. She denies any medic easy melena hematemesis or coffee-ground emesis no fever sweats or chills. Associated Symptoms: Reports constipation; Denies chills, diarrhea, dysuria, fever(s), nausea and vomiting Related Data Home Medications ?Medication ?Instructions ?Recorded ?Confirmed ezetimibe 10 mg tablet 10 mg PO DAILY 12/31/23 02/03/25 fluoxetine 10 mg capsule 10 mg PO DAILY 12/31/23 02/03/25 levothyroxine 50 mcg tablet 50 mcg PO QAM 12/31/23 02/03/25 tizanidine 4 mg tablet mg PO 12/31/23 10/12/24 dicyclomine 10 mg capsule 10 mg PO BID 03/03/24 02/03/25 magnesium 250 mg tablet 500 mg PO DAILY 03/03/24 02/03/25 metoprolol tartrate 25 mg tablet 25 mg PO BID 02/03/25 02/03/25 Previous Rx's ?Medication ?Instructions ?Recorded pantoprazole 40 mg tablet,delayed 40 mg PO DAILY #90 tabs 03/03/24 release prednisone 5 mg tablet See Rx Instructions PO .COMPLEX 10/12/24 PRN joint pain flare #30 tabs tramadol 50 mg tablet 50 mg PO BID PRN pain (scale score 10/19/24 7-10) #14 tabs tramadol 50 mg tablet 50 mg PO BID PRN pain (scale score 10/19/24 7-10) #60 tabs lactulose 10 gram/15 mL oral 30 ml PO Q2H PRN constipation 72 02/03/25 solution (Generlac) hours #1,080 mL Allergies Allergy/AdvReac Type Severity Reaction Status Date / Time Sulfa (Sulfonamide Allergy Severe ALGY-Rash Verified 10/12/24 13:36 Antibiotics) bee venom protein (honey bee) Allergy Intermediate ALGY-Swell Verified 10/12/24 13:36 Lip/Tongue/Throat Alpha-Gal Allergy Unknown Verified 02/03/25 08:43 (Vsocvxnfd-Ocqmt-3,3-Gala allopurinol AdvReac Intermediate tongue raw Verified 10/12/24 13:36 and loss of taste colchicine AdvReac Intermediate ADR-Dry Verified 10/12/24 17:28 Mucus Membranes febuxostat AdvReac Intermediate ADR-Dry Verified 10/12/24 17:28 Mucus Membranes Review of Systems Const: Denies: fever(s) or chills Card: Denies: chest pain Resp: Denies: dyspnea GI: Reports: abdominal pain and constipation; Denies: nausea, vomiting or diarrhea : Denies: dysuria, urinary frequency or urinary urgency Musc: Denies: neck pain or back pain Skin/Breast: Denies: rash PFSH ED PFSH: Medical History (Updated 02/03/25 @ 11:23 by Jose Wells DO) Immunization counseling Positive JEN (antinuclear antibody) High risk medication use Hx of gout Inflammatory arthritis Osteoarthritis Fibromyalgia Hypertension Tachycardia Aortic aneurysm Surgical History History of partial thyroidectomy Previous back surgery Hx of hysterectomy Hx of cholecystectomy Hx of hemorrhoidectomy Hx of section Hx of knee surgery Social History Smoking and tobacco/nicotine status: never used tobacco/nicotine Alcohol intake: never Substance/Drug Use: never Physical Exam Const: COMMON NORMALS: no acute distress GENERAL APPEARANCE: cooperative and comfortable ORIENTATION/CONSCIOUSNESS: Yes awake, Yes oriented to person, Yes oriented to place and Yes oriented to time HENMT: COMMON NORMALS: normocephalic, atraumatic and hearing grossly normal bilaterally HEAD & SCALP: normocephalic and atraumatic Resp: COMMON NORMALS: normal respiratory effort, No retractions, No use of accessory muscles and clear to auscultation bilaterally AUSCULTATION: clear to auscultation bilaterally Cardio: COMMON NORMALS: regular rate, regular rhythm and No murmurs present (Cardio) RATE: regular rate RHYTHM: regular rhythm GI: COMMON NORMALS: Soft to palpation and No hepatosplenomegaly present AUSCULTATION: Yes normoactive bowel sounds PALPATION: Yes Soft to palpation, No Tenderness to palpation present (GI), No Guarding due to palpation present (GI) and Yes No hepatosplenomegaly present Extremity: COMMON NORMALS: normal to inspection, capillary refill normal, no clubbing, cyanosis or edema, no calf tenderness and no pedal edema Neuro: SENSORIUM/ORIENTATION: Yes oriented to person, Yes oriented to place and Yes oriented to time Skin: COMMON NORMALS: no rashes or lesions noted GENERAL SKIN EXAM: no rashes or lesions noted Course Vital Signs: Vital signs: Vital Signs Temperature 97.7 F 02/03/25 08:36 Pulse Rate 48 L 02/03/25 10:54 Respiratory Rate 18 02/03/25 08:36 Blood Pressure 142/78 02/03/25 10:54 Pulse Oximetry 92 02/03/25 10:54 Oxygen Delivery Me thod Room Air 02/03/25 10:54 MDM - Abdominal Pain Medical Decision Making Patient has right-sided constipation no obstruction masses noted on the CT. Remainder labs otherwise unremarkable. Will discharge patient home with lactulose to use for relief of constipation follow-up with primary care. Has pill endoscopy pill as noted on the CT. Complete pill endoscopy as planned Medical Records I reviewed the patient's medical records. Lab Data I reviewed the patient's lab results. 02/03/25 09:05 02/03/25 09:05 Labs/Radiology: Radiology Impressions KUB X-Ray 02/03/25 08:17 Impression: Moderate fecal material in the colon. Abdomen/Pelvis CT 02/03/25 09:18 IMPRESSION: 1. Moderate constipation. Greatest fecal retention in the RIGHT colon and at the rectum. No obstructing lesion identified. 2. Foreign body within the stomach. Patient provided history of a recent capsule endoscopy. This may be the capsule remaining within the stomach. 3. No renal obstruction. 4. Mild atherosclerosis aorta. 5. Prior cholecystectomy. Laboratory Results WBC 5.00 10^3/uL (3.29-11.43) 02/03/25 09:05 RBC 4.56 10^6/uL (3.85-5.65) 02/03/25 09:05 Hgb 13.20 g/dL (11.27-16.99) 02/03/25 09:05 Hct 39.9 % (36-47) 02/03/25 09:05 MCV 87.5 fl (85-98) 02/03/25 09:05 MCH 28.9 pg (27-33) 02/03/25 09:05 MCHC 33.1 g/dL (30-55) 02/03/25 09:05 RDW 13.4 % (12.1-15.1) 02/03/25 09:05 Plt Count 173 10^3/cmm (157-399) 02/03/25 09:05 MPV 9.8 fL (7.4-10.4) 02/03/25 09:05 Neut % (Auto) 59.2 % 02/03/25 09:05 Lymph % (Auto) 23.6 % 02/03/25 09:05 [place] % (Auto) 9.6 % 02/03/25 09:05 Eos % (Auto) 5.8 % 02/03/25 09:05 Baso % (Auto) 1.4 % 02/03/25 09:05 Neut # (Auto) 2.96 10^3/uL (1.8-7.7) 02/03/25 09:05 Lymph # (Auto) 1.2 10^3/uL (0.8-4.8) 02/03/25 09:05 [place] # (Auto) 0.5 10^3/uL (0.2-0.9) 02/03/25 09:05 Eos # (Auto) 0.3 10^3/uL (0.0-0.8) 02/03/25 09:05 Baso # (Auto) 0.1 10^3/uL (0.0-0.1) 02/03/25 09:05 Nucleated RBC % (auto) 0 % 02/03/25 09:05 Nucleated RBCs # 0.0 /100WBC 02/03/25 09:05 Sodium 138 mmol/L (136-145) 02/03/25 09:05 Potassium 3.7 mmol/L (3.5-5.1) 02/03/25 09:05 Chloride 100 mmol/L (98-107) 02/03/25 09:05 Carbon Dioxide 29 mmol/L (22-29) 02/03/25 09:05 Anion Gap 12.7 (5-19) 02/03/25 09:05 BUN 8 mg/dL (8-23) 02/03/25 09:05 Creatinine 0.8 mg/dL (0.5-0.9) 02/03/25 09:05 GFR Calculation Not Reportable 02/03/25 09:05 Glucose 156 mg/dL (65-115) H 02/03/25 09:05 Calculated Osmolality 288 mOsm/kg (285-295) 02/03/25 09:05 Calcium 9.0 mg/dL (8.5-10.5) 02/03/25 09:05 Total Bilirubin 0.5 mg/dL (0.15-1.2) 02/03/25 09:05 AST 23 U/L (0-32) 02/03/25 09:05 ALT 19 U/L (0-33) 02/03/25 09:05 Alkaline Phosphatase 115 U/L (35-105) H 02/03/25 09:05 Total Protein 6.0 g/dL (6.6-8.7) L 02/03/25 09:05 Albumin 3.7 g/dL (3.5-5.2) 02/03/25 09:05 Globulin 2.3 g/dL (1.3-4.6) 02/03/25 09:05 Urine Color Yellow (Yellow) 02/03/25 10:13 Urine Appearance Cloudy (CLEAR) A 02/03/25 10:13 Urine pH 7.5 (5-7) 02/03/25 10:13 Ur Specific [place] 1.009 (1.005-1.030) 02/03/25 10:13 Urine Protein Negative (Negative) 02/03/25 10:13 Urine Glucose (UA) Negative (Normal) 02/03/25 10:13 Urine Ketones Negative (Negative) 02/03/25 10:13 Urine Blood Negative (Negative) 02/03/25 10:13 Urine Nitrate Negative (Negative) 02/03/25 10:13 Urine Bilirubin Negative (Negative) 02/03/25 10:13 Urine Urobilinogen 1.0 mg/dL (Negative) 02/03/25 10:13 Ur Leukocyte Esterase 1+ (Negative) A 02/03/25 10:13 Urine RBC 0-2 /hpf (0-2) 02/03/25 10:13 Urine WBC 11-20 /hpf (0-5) H 02/03/25 10:13 Ur Squamous Epith Cells 0-5 /hpf (0-5) 02/03/25 10:13 Amorphous Sediment Not Reportable 02/03/25 10:13 Urine Bacteria None seen /hpf (NONE) 02/03/25 10:13 Hyaline Casts 0.40 /lpf 02/03/25 10:13 All radiology interpretation(s) finalized by discharge Discharge Plan Discharge Patient Disposition: Home Clinical Impression: Constipation Condition: Stable Prescriptions: New lactulose [Generlac] 10 gram/15 mL solution 30 ml PO Q2H PRN (Reason: constipation) 3 Days Qty: 1080 0RF Rx Instructions: until desired laxative effect No Action magnesium 250 mg tablet 500 mg PO DAILY pantoprazole 40 mg tablet,delayed release (DR/EC) 40 mg PO DAILY Qty: 90 1RF ezetimibe 10 mg tablet 10 mg PO DAILY levothyroxine 50 mcg tablet 50 mcg PO QAM fluoxetine 10 mg capsule 10 mg PO DAILY tizanidine 4 mg tablet PO dicyclomine 10 mg capsule 10 mg PO BID prednisone 5 mg tablet See Rx Instructions PO .COMPLEX PRN (Reason: joint pain flare) Qty: 30 1RF Rx Instructions: take 1-4 tabs daily for up to 7 days prn joint pain flare orally PRN; tramadol 50 mg tablet 50 mg PO BID PRN (Reason: pain (scale score 7-10)) Qty: 14 0RF Rx Instructions: 7day trial tramadol 50 mg tablet 50 mg PO BID PRN (Reason: pain (scale score 7-10)) Qty: 60 1RF metoprolol tartrate 25 mg tablet 25 mg PO BID Discharge Orders: Discharge ED (Routine); Ordered 02/03/25 Ordered By: Jose Wells Referrals: Iam Tyson MD [Primary Care Provider, Family Practice] Discharge Diet: Clear Liquid Discharge Activity: Increase activity as tolerated Patient Instructions: Constipation (ED), Opioid Safety, Pain Management, Patient Portal & Tammy Instructions Activity Restrictions/Additional Instructions: Thank you for choosing [facility] for your healthcare needs today. It is very important that you follow up as instructed or that you return to the Emergency Department should you have concerns or if your condition changes or worsens in any way. You were seen with concerns about constipation there is quite a bit of constipation with retained stool in the right side your colon enema will not particularly help. Recommend that you use lactulose 1 dose every 2 hours until adequate results achieved follow-up with your primary care doctor the CT did not show any significant pathology Print Language: Estonian Coding Level of Care Code ED Supervisor Cloth Winding for Moon Epperson
[2025-02-03 09:13] LABS: Hematocrit 39.9 % (36-47); Hemoglobin 13.20 g/dL (11.27-16.99); Mean Corpuscular HGB Conc 33.1 g/dL (30-55); Mean Corpuscular Hemoglobin 28.9 pg (27-33); Mean Corpuscular Volume 87.5 fl (85-98); Nucleated Red Blood Cells % 0 %; Platelet Count 173 10^3/cmm (157-399); Red Blood Count 4.56 10^6/uL (3.85-5.65); White Blood Count 5.00 10^3/uL (3.29-11.43)
--- NOTE | 2025-02-03 09:18 | CT_ITS ---
WS: [id number] CT ABDOMEN AND PELVIS NONCONTRAST HISTORY: Abdominal pain change in bowel movement TECHNIQUE: Imaging performed through the abdomen and pelvis. Coronal and sagittal reformats are submitted. All CT scans at [facility] use at least one of these dose optimization techniques: automated exposure control; mA and/or kV adjustment per patient size (includes targeted exams where dose is matched to clinical indication); or iterative reconstruction. DLP: 660.36 mGy.cm COMPARISON: 08/16/2020 Lower thorax: Lung bases are clear. Visualized heart is normal. No hiatal hernia. Liver: Normal size liver. No mass or bile duct dilatation. Gallbladder: Prior cholecystectomy. Pancreas: Normal size and attenuation. Normal pancreatic duct. No pancreatitis or mass. Spleen: Normal. Adrenal glands: Normal. No mass. Right kidney: Perinephric stranding. No obstruction. Left kidney: Perinephric stranding with no obstruction. Aorta: Mild atherosclerosis abdominal aorta with no aneurysm. No free fluid, intraperitoneal air or significant lymphadenopathy. GI tract: Nondistended stomach. There is a metallic foreign body within the stomach. Patient did provide a history of recent capsule endoscopy. This may be the capsule remaining within the stomach. No small bowel obstruction. Moderate constipation. Increased fecal material in the RIGHT colon. Increased fecal material in the rectum. No colitis or wall thickening. Negative appendix. Abdominal wall: Small umbilical hernia contains fat only. Pelvis: Well-distended urinary bladder. Prior hysterectomy. Osseous structures: Posterior lumbar fusion at L4-5. Degenerative scoliosis lumbar spine. CT/CT abdomen pelvis wo con [id number] IMPRESSION: 1. Moderate constipation. Greatest fecal retention in the RIGHT colon and at t he rectum. No obstructing lesion identified. 2. Foreign body within the stomach. Patient provided history of a recent capsu le endoscopy. This may be the capsule remaining within the stomach. 3. No renal obstruction. 4. Mild atherosclerosis aorta. 5. Prior cholecystectomy.
[2025-02-03 09:32] LABS: Alanine Aminotransferase 19 U/L (0-33); Albumin Level 3.7 g/dL (3.5-5.2); Alkaline Phosphatase 115 U/L (35-105); Anion Gap 12.7 (5-19); Aspartate Amino Transferase 23 U/L (0-32); Blood Urea Nitrogen 8 mg/dL (8-23); Calcium 9.0 mg/dL (8.5-10.5); Carbon Dioxide 29 mmol/L (22-29); Chloride 100 mmol/L (98-107); Creatinine Clr Calc Pharmacy 63.5402; Globulin 2.3 g/dL (1.3-4.6); Glucose 156 mg/dL (65-115); Osmolality Calculated 288 mOsm/kg (285-295); Potassium 3.7 mmol/L (3.5-5.1); Sodium 138 mmol/L (136-145); Total Protein 6.0 g/dL (6.6-8.7)
[2025-02-03 10:32] LABS: Glucose Urine UA Negative (Normal); Nitrate Urine Negative (Negative); Specific Gravity, Urine 1.009 (1.005-1.030)
[2025-02-03 10:34] LABS: Add Urine Microscopic? YES
[2025-02-03 10:54] VITALS: BP 142/78; PULSE 48; O2SAT 92
== END 2025-02-03 12:41 | disposition home or self-care (01) ==
PROVIDERS: Emergency Provider Family Medicine; PCP Family Medicine
DX: K59.00 Constipation, unspecified (principal); I10 Essential (primary) hypertension
CPT/HCPCS: 36415; 74018; 74176; 80053; 81001; 85025; 99284

== ENCOUNTER 2025-03-09 08:35 | Outpatient (RCR) | payer MEDICARE, SELFPAY | END 2025-03-16 23:59 | disposition home or self-care (01) | LOC: SPT 08:35 | PROVIDERS: PCP Family Medicine; Visit Provider Neurological Surgery | DX: Z98.1 Arthrodesis status (principal) | CPT/HCPCS: 97161 ==

== ENCOUNTER 2025-05-20 11:43 | Observation (INO) | payer MEDICARE, SELFPAY ==
[2025-05-20] VITALS (42 sets, daily range): BP systolic 141–193; BP diastolic 86–122; PULSE 55–142; RESP 14–23; TEMP 36.5–38; O2SAT 95–99; BMI 25.7; BMI 26.7
--- NOTE | 2025-05-20 11:59 | ECG_ITS ---
[employer] Test Date: 2025-05-20 Pat Name: Ana Grissom Department: Room: Gender: Female Manager Terminal: : 1950 Requested By: Darlyn De Leon Order Number: [id number] Rodríguez MD: Tutu Cisneros M.D. Measurements Intervals [place] Rate: 60 P: 3 MA: 188 QRS: -12 QRSD: 86 T: 26 QT: 405 QTc: 407 Interpretive Statements SINUS RHYTHM VOLTAGE CRITERIA FOR LVH [MEETS CRITERIA IN ONE OF: R(aVL), S(V1), R(V5), R(V5/V6)+S(V1)] Compared to ECG 09/14/2014 17:08:11 Left ventricular hypertrophy now present Myocardial infarct finding no longer present Electronically Signed On 05-21-2025 18:57:17 DATA WAREHOUSE CONSULTANT by Tutu Cisneros M.D. [email or web address]
--- NOTE | 2025-05-20 12:04 | W.ED.RECABL ---
Documented by User: GEETA Givens 05/21/25 09:38 HPI - Recheck/Abnormal Lab/Rx General: Chief Complaint: Recheck/Abnormal Lab/Rx Stated Complaint: abn labs Time Seen by Provider: 05/20/25 11:58 Source: patient and family Mode of arrival: ambulatory Limitations: no limitations History of Present Illness: Patient is a nice 74-year-old female who presents to ED today after she was called by Dr. Tyson's office stating that her blood work showed hyperkalemia. Patient states she was seen and had labs drawn a few weeks ago and was told that her potassium was low. Patient states she was placed on potassium supplementation that she has been taking twice daily over the past week. She states she had labs drawn today which now showed hyperkalemia and was instructed to come to the emergency department. She states she feels tired but that this is not overly uncommon and blames it on her alpha gal. States she spent most of the day in bed yesterday. Also having some back stoe-auqgxvelr-aho surgery back in March and states she won't be fully released until June. complaint: abnormal lab Initial visit (ago): hour(s) Returns today for: called because of abnormal lab/test Context: called for abnormal lab result Associated symptoms: other (fatigue) Related Data Home Medications ?Medication ?Instructions ?Recorded ?Confirmed ezetimibe 10 mg tablet 10 mg PO DAILY 12/31/23 05/20/25 levothyroxine 50 mcg tablet 50 mcg PO QAM 12/31/23 05/20/25 dicyclomine 10 mg capsule 10 mg PO BID 03/03/24 05/20/25 metoprolol tartrate 25 mg tablet 25 mg PO BID 02/03/25 05/20/25 tizanidine 4 mg tablet 4 mg PO BID 02/03/25 05/20/25 alprazolam 0.5 mg tablet 0.5 mg PO BEDTIME PRN Sleep 05/20/25 05/20/25 fluoxetine 10 mg capsule 10 mg PO DAILY 05/20/25 05/20/25 losartan 25 mg tablet 25 mg PO BID 05/20/25 05/20/25 Previous Rx's ?Medication ?Instructions ?Recorded pantoprazole 40 mg tablet,delayed 40 mg PO DAILY #90 tabs 03/03/24 release tramadol 50 mg tablet 50 mg PO BID PRN pain (scale score 10/19/24 7-10) #60 tabs sodium polystyrene sulfonate 15 15 g PO BID #30 grams 05/20/25 gram oral powder cefdinir 300 mg capsule 300 mg PO BID 5 days #10 caps 05/23/25 rivaroxaban 10 mg tablet (Xarelto) 10 mg PO DAILY #30 tabs 05/23/25 Allergies Allergy/AdvReac Type Severity Reaction Status Date / Time Sulfa (Sulfonamide Allergy Severe ALGY-Rash Verified 05/20/25 11:55 Antibiotics) bee venom protein (honey bee) Allergy Intermediate ALGY-Swell Verified 05/20/25 11:55 Lip/Tongue/Throat Alpha-Gal Allergy Unknown Verified 05/20/25 11:55 (Uusssbwwd-Wtkfy-4,3-Gala allopurinol AdvReac Intermediate tongue raw Verified 05/20/25 11:55 and loss of taste colchicine AdvReac Intermediate ADR-Dry Verified 05/20/25 11:55 Mucus Membranes febuxostat AdvReac Intermediate ADR-Dry Verified 05/20/25 11:55 Mucus Membranes Review of Systems Const: Reports: fatigue; Denies: fever(s), chills, body aches or malaise Card: Denies: chest pain Resp: Denies: dyspnea GI: Denies: abdominal pain, nausea, vomiting or diarrhea : Denies: flank pain, dysuria or hematuria Musc: Reports: back pain (improving-surgery back in [place]); Denies: neck pain, extremity pain, extremity swelling, joint pain, joint swelling or joint redness Skin/Breast: Denies: rash Neuro: Denies: headache(s), numbness in extremities, weakness in extremities, sensory changes or dizziness PFSH ED PFSH: Medical History Immunization counseling Positive JEN (antinuclear antibody) High risk medication use Hx of gout Inflammatory arthritis Osteoarthritis Fibromyalgia Hypertension Tachycardia Aortic aneurysm Surgical History History of partial thyroidectomy Previous back surgery Hx of hysterectomy Hx of cholecystectomy Hx of hemorrhoidectomy Hx of section Hx of knee surgery Social History Smoking and tobacco/nicotine status: never used tobacco/nicotine Alcohol intake: never Substance/Drug Use: never Physical Exam Const: COMMON NORMALS: no acute distress, average body habitus, patient oriented x3, no limitations, healthy appearing, alert and well nourished GENERAL APPEARANCE: cooperative ORIENTATION/CONSCIOUSNESS: Yes awake, Yes oriented to person, Yes oriented to place and Yes oriented to time HENMT: COMMON NORMALS: normocephalic and atraumatic HEAD & SCALP: normal to inspection, normocephalic and atraumatic Neck/C-Spine: COMMON NORMALS: full ROM, no lymphadenopathy, supple and no meningeal signs Chest: COMMONS NORMALS: normal inspection of the chest Resp: COMMON NORMALS: normal respiratory effort and clear to auscultation bilaterally AUSCULTATION: clear to auscultation bilaterally Cardio: COMMON NORMALS: regular rate and regular rhythm RATE: regular rate RHYTHM: regular rhythm GI: COMMON NORMALS: Normal to inspection, nondistended, normoactive bowel sounds present, Soft to palpation, non-tender, No hepatosplenomegaly present and no masses PALPATION: Yes Soft to palpation and Yes No hepatosplenomegaly present : COMMON NORMALS: Yes no CVA tenderness BLADDER/KIDNEY EXAM: Yes no CVA tenderness Back/Pelvis: COMMON NORMALS: no CVA tenderness and thoracic and lumbar spine normal to inspection Extremity: COMMON NORMALS: normal to inspection Neuro: COMMON NORMALS: patient oriented x3 SENSORIUM/ORIENTATION: Yes alert, Yes oriented to person, Yes oriented to place and Yes oriented to time MENINGEAL SIGNS: Yes no meningeal signs Skin: COMMON NORMALS: no rashes or lesions noted GENERAL SKIN EXAM: no rashes or lesions noted Course Consultations: Consultation #1: Dr. Jenkins-recommending treating her potassium of 7.0 here in ED and rechecking and if trending downward can probably be discharged home; agreed with medications ordered but also requested 15mg Kayexalate Spoke to Dr. Jenkins again after potassium was recheck and was now 5.7-feels she can go home on lasix/kayexalate and follow up with PCP in the morning and have potassium rechecked I spoke to patient's PCP Dr. Tyson who was not going to be in clinic tomorrow as he was covering a senior care-had hoped patient be admitted-was willing to come into clinic early and see patient at 7am if absolutely necessary and if hospitalist was unwilling to admit. Spoke to Dr. Jenkins (again) who recommended repeating another potassium level. Spoke to Dr. Jenkins yet again after repeat potassium had hemolyzed. Patient is now hypertensive and tachycardic. She has been given hydralazine and metoprolol without much change. EKG showing sinus tach with normal IA/QTc intervals. He is now willing to admit patient to obs. Requesting labetalol and ativan which have been ordered. Vital Signs: Vital signs: Vital Signs Temperature 97.3 F L 05/23/25 11:44 Pulse Rate 73 05/23/25 11:44 Respiratory Rate 13 05/23/25 11:44 Blood Pressure 132/77 05/23/25 11:44 Pulse Oximetry 96 05/23/25 11:44 Oxygen Delivery Me thod Room Air 05/23/25 07:35 MDM - Recheck/Abnormal Lab/Rx Medical Decision Making Patient is a 74-year-old female presents to ED today at the request of her PCP Dr. Tyson for hyperkalemia. She was seen in his office a week or so ago with hypokalemia 3.0. She was placed on potassium supplementation and upon recheck today her potassium was critically elevated. Potassium here in the emergency department was 7.0 upon arrival. I had originally contacted the hospitalist for admission as this was a critically high hyperkalemia but hospitalist felt that this could be treated here in the emergency department and rechecked. After administration of calcium gluconate, insulin/dextrose, albuterol, and kayexalate potassium had declined to 5.7. Hospitalist was contacted again who recommended discharge home. I spoke to patient's PCP Dr. Tyson as well as my attending physician Dr. Wells who both felt patient needed to be admitted. I spoke to Dr. Jenkins again who recommended we recheck another potassium level here in ED. In the meantime patient has become very hypertensive and tachycardic. She does take bp meds at home but states her blood pressure is never this high. EKG was repeated showing sinus tach with normal IA/QTc intervals-reviewed along with Dr. Brothers. Her repeat potassium requested by hospitalist has hemolyzed. She is visibly frustrated and rightfully so-certainly I think this is a component to her vital change. Patient has been down here in the ED for over 7 hours. She has been given hydralazine and metoprolol for her hypertension and now labetalol and ativan at the request of Dr. Jenkins after I spoke to him yet again-he is now agreeable to an obs admit. BP at time of admit orders is now down in the 140s systolic. Dr. Wells has been aware of patient during her stay as well as Dr. Brothers now that he is on shift. He will be placing admit orders. Medical Records I reviewed the patient's medical records. Lab Data I reviewed the patient's lab results. 05/22/25 08:32 05/22/25 08:32 Radiology Impressions Chest X-Ray 05/20/25 21:59 IMPRESSION: No acute findings. Chest CTA 05/21/25 00:05 IMPRESSION: 1. No acute pulmonary embolus or evidence of acute right heart strain. 2. No acute process in the chest is identified to explain the patient's symptoms. 3. Ascending aortic aneurysm measuring less than 5 cm. Recommend follow-up imaging in 1 year to document stability. 4. Moderate atherosclerosis of the LAD coronary artery. Abdomen/Pelvis CT 05/21/25 15:29 IMPRESSION: No acute process in the abdomen or pelvis. Lumbar Spine CT 05/21/25 15:29 IMPRESSION: Posterior spinal fusion from L2-L5. No acute fracture. Heterogeneous appearance of the posterior elements at the postsurgical levels. Mild subcutaneous stranding and fullness of the paraspinal muscles without discrete organized collection. Laboratory Results WBC 11.35 10^3/uL (3.29-11.43) 05/21/25 05:20 RBC 5.24 10^6/uL (3.85-5.65) 05/21/25 05:20 Hgb 13.20 g/dL (11.27-16.99) 05/21/25 05:20 Hct 42.4 % (36-47) 05/21/25 05:20 MCV 80.9 fl (85-98) L 05/21/25 05:20 MCH 25.2 pg (27-33) L 05/21/25 05:20 MCHC 31.1 g/dL (30-55) 05/21/25 05:20 RDW 13.2 % (12.1-15.1) 05/21/25 05:20 Plt Count 384 10^3/cmm (157-399) D 05/21/25 05:20 MPV 9.8 fL (7.4-10.4) 05/21/25 05:20 Neut % (Auto) 89.6 % 05/21/25 05:20 Lymph % (Auto) 7.6 % 05/21/25 05:20 [place] % (Auto) 2.0 % 05/21/25 05:20 Eos % (Auto) 0.0 % 05/21/25 05:20 Baso % (Auto) 0.4 % 05/21/25 05:20 Neut # (Auto) 10.17 10^3/uL (1.8-7.7) H 05/21/25 05:20 Lymph # (Auto) 0.9 10^3/uL (0.8-4.8) 05/21/25 05:20 [place] # (Auto) 0.2 10^3/uL (0.2-0.9) 05/21/25 05:20 Eos # (Auto) 0.0 10^3/uL (0.0-0.8) 05/21/25 05:20 Baso # (Auto) 0.1 10^3/uL (0.0-0.1) 05/21/25 05:20 Nucleated RBC % (auto) 0 % 05/21/25 05:20 Nucleated RBCs # 0.0 /100WBC 05/21/25 05:20 D-Dimer 1.05 ug/mLFEU (0-0.59) H 05/20/25 23:25 Sodium 140 mmol/L (136-145) 05/21/25 05:20 Potassium 4.6 mmol/L (3.5-5.1) 05/21/25 05:20 Chloride 101 mmol/L (98-107) 05/21/25 05:20 Carbon Dioxide 22 mmol/L (22-29) 05/21/25 05:20 Anion Gap 21.6 (5-19) H 05/21/25 05:20 BUN 11 mg/dL (8-23) 05/21/25 05:20 Creatinine 1.3 mg/dL (0.5-0.9) H 05/21/25 05:20 GFR Calculation Not Reportable 05/21/25 05:20 Glucose 186 mg/dL (65-115) H 05/21/25 05:20 POC Glucose 157 mg/dL (70-110) H 05/20/25 23:03 Calculated Osmolality 294 mOsm/kg (285-295) 05/21/25 05:20 Lactic Acid 2.9 mmol/L (0.5-2.2) H 05/20/25 20:58 Lactic Acid (Sepsis) 4.1 mmol/L (0.5-2.2) H* 05/20/25 23:25 Calcium 10.2 mg/dL (8.5-10.5) 05/21/25 05:20 Magnesium 1.8 mg/dL (1.7-2.3) 05/21/25 05:20 Total Bilirubin 0.5 mg/dL (0.15-1.2) 05/21/25 05:20 AST 33 U/L (0-32) H 05/21/25 05:20 ALT 21 U/L (0-33) 05/21/25 05:20 Alkaline Phosphatase 176 U/L (35-105) H 05/21/25 05:20 Troponin T 5th Gen ng/L 10 ng/L (0-10) 05/20/25 23:25 C-Reactive Protein 3.0 mg/L (0.0-4.9) 05/20/25 19:00 Total Protein 7.6 g/dL (6.6-8.7) 05/21/25 05:20 Albumin 4.6 g/dL (3.5-5.2) 05/21/25 05:20 Globulin 3.0 g/dL (1.3-4.6) 05/21/25 05:20 Procalcitonin 0.12 ng/mL (0-0.5) 05/20/25 19:00 TSH 0.93 uIU/mL (0.27-4.20) 05/20/25 19:00 Urine Color Yellow (Yellow) 05/20/25 19:26 Urine Appearance Clear (CLEAR) 05/20/25 19:26 Urine pH 7.5 (5-7) 05/20/25 19:26 Ur Specific [place] 1.005 (1.005-1.030) 05/20/25 19:26 Urine Protein Negative (Negative) 05/20/25 19:26 Urine Glucose (UA) Negative (Normal) 05/20/25 19:26 Urine Ketones Negative (Negative) 05/20/25 19:26 Urine Blood Negative (Negative) 05/20/25 19:26 Urine Nitrate Negative (Negative) 05/20/25 19:26 Urine Bilirubin Negative (Negative) 05/20/25 19:26 Urine Urobilinogen 0.2 mg/dL (Negative) 05/20/25 19:26 Ur Leukocyte Esterase Negative (Negative) 05/20/25 19:26 Urine RBC 0-2 /hpf (0-2) 05/20/25 19:26 Urine WBC 0-5 /hpf (0-5) 05/20/25 19:26 Ur Squamous Epith Cells 0-5 /hpf (0-5) 05/20/25 19:26 Amorphous Sediment Not Reportable 05/20/25 19:26 Urine Bacteria None seen /hpf (NONE) 05/20/25 19:26 Hyaline Casts 0-4 /lpf H 05/20/25 19:26 Influenza A (PCR) Negative (Negative) 05/20/25 21:57 Influenza Type B (PCR) Negative (Negative) 05/20/25 21:57 RSV (PCR) Negative (Negative) 05/20/25 21:57 SARS-CoV-2 (PCR) Negative (Negative) 05/20/25 21:57 No radiology studies performed this visit Discharge Plan Discharge Patient Disposition: Admitted As Inpatient Admit Provider: Una Jenkins Clinical Impression: Acute hyperkalemia, Hypertensive urgency, Tachycardia Condition: Stable Discharge Diet: Cardiac Discharge Activity: Resume usual activity Coding Level of Care Code ED Pocket Cutter for Chg Fwd Documented by User: Jose Wells DO 05/24/25 07:11 HPI - Recheck/Abnormal Lab/Rx General: Chief Complaint: Recheck/Abnormal Lab/Rx Stated Complaint: abn labs Time Seen by Provider: 05/20/25 11:58 Related Data Home Medications ?Medication ?Instructions ?Recorded ?Confirmed ezetimibe 10 mg tablet 10 mg PO DAILY 12/31/23 05/20/25 levothyroxine 50 mcg tablet 50 mcg PO QAM 12/31/23 05/20/25 dicyclomine 10 mg capsule 10 mg PO BID 03/03/24 05/20/25 metoprolol tartrate 25 mg tablet 25 mg PO BID 02/03/25 05/20/25 tizanidine 4 mg tablet 4 mg PO BID 02/03/25 05/20/25 alprazolam 0.5 mg tablet 0.5 mg PO BEDTIME PRN Sleep 05/20/25 05/20/25 fluoxetine 10 mg capsule 10 mg PO DAILY 05/20/25 05/20/25 losartan 25 mg tablet 25 mg PO BID 05/20/25 05/20/25 Previous Rx's ?Medication ?Instructions ?Recorded pantoprazole 40 mg tablet,delayed 40 mg PO DAILY #90 tabs 03/03/24 release tramadol 50 mg tablet 50 mg PO BID PRN pain (scale score 10/19/24 7-10) #60 tabs sodium polystyrene sulfonate 15 15 g PO BID #30 grams 05/20/25 gram oral powder cefdinir 300 mg capsule 300 mg PO BID 5 days #10 caps 05/23/25 rivaroxaban 10 mg tablet (Xarelto) 10 mg PO DAILY #30 tabs 05/23/25 Allergies Allergy/AdvReac Type Severity Reaction Status Date / Time Sulfa (Sulfonamide Allergy Severe ALGY-Rash Verified 05/20/25 11:55 Antibiotics) bee venom protein (honey bee) Allergy Intermediate ALGY-Swell Verified 05/20/25 11:55 Lip/Tongue/Throat Alpha-Gal Allergy Unknown Verified 05/20/25 11:55 (Tqweqvans-Izxbk-5,3-Gala allopurinol AdvReac Intermediate tongue raw Verified 05/20/25 11:55 and loss of taste colchicine AdvReac Intermediate ADR-Dry Verified 05/20/25 11:55 Mucus Membranes febuxostat AdvReac Intermediate ADR-Dry Verified 05/20/25 11:55 Mucus Membranes PFSH ED PFSH: Medical History Immunization counseling Positive JEN (antinuclear antibody) High risk medication use Hx of gout Inflammatory arthritis Osteoarthritis Fibromyalgia Hypertension Tachycardia Aortic aneurysm Surgical History History of partial thyroidectomy Previous back surgery Hx of hysterectomy Hx of cholecystectomy Hx of hemorrhoidectomy Hx of section Hx of knee surgery Social History Smoking and tobacco/nicotine status: never used tobacco/nicotine Alcohol intake: never Substance/Drug Use: never Course Vital Signs: Vital signs: Vital Signs Temperature 97.3 F L 05/23/25 11:44 Pulse Rate 73 05/23/25 11:44 Respiratory Rate 13 05/23/25 11:44 Blood Pressure 132/77 05/23/25 11:44 Pulse Oximetry 96 05/23/25 11:44 Oxygen Delivery Me thod Room Air 05/23/25 07:35 MDM - Recheck/Abnormal Lab/Rx Medical Decision Making Patient is a 74-year-old female presents to ED today at the request of her PCP Dr. Tyson for hyperkalemia. She was seen in his office a week or so ago with hypokalemia 3.0. She was placed on potassium supplementation and upon recheck today her potassium was critically elevated. Potassium here in the emergency department was 7.0 upon arrival. I had originally contacted the hospitalist for admission as this was a critically high hyperkalemia but hospitalist felt that this could be treated here in the emergency department and rechecked. After administration of calcium gluconate, insulin/dextrose, albuterol, and kayexalate potassium had declined to 5.7. Hospitalist was contacted again who recommended discharge home. I spoke to patient's PCP Dr. Tyson as well as my attending physician Dr. Wells who both felt patient needed to be admitted. I spoke to Dr. Jenkins again who recommended we recheck another potassium level here in ED. In the meantime patient has become very hypertensive and tachycardic. She does take bp meds at home but states her blood pressure is never this high. EKG was repeated showing sinus tach with normal IA/QTc intervals-reviewed along with Dr. Brothers. Her repeat potassium requested by hospitalist has hemolyzed. She is visibly frustrated and rightfully so-certainly I think this is a component to her vital change. Patient has been down here in the ED for over 7 hours. She has been given hydralazine and metoprolol for her hypertension and now labetalol and ativan at the request of Dr. Jenkins after I spoke to him yet again-he is now agreeable to an obs admit. BP at time of admit orders is now down in the 140s systolic. Dr. Wells has been aware of patient during her stay as well as Dr. Brothers now that he is on shift. He will be placing admit orders. Chart reviewed and patient discussed with midlevel. Agree with assessment and plan. Lab Data 05/22/25 08:32 05/22/25 08:32 Radiology Impressions Chest X-Ray 05/20/25 21:59 IMPRESSION: No acute findings. Chest CTA 05/21/25 00:05 IMPRESSION: 1. No acute pulmonary embolus or evidence of acute right heart strain. 2. No acute process in the chest is identified to explain the patient's symptoms. 3. Ascending aortic aneurysm measuring less than 5 cm. Recommend follow-up imaging in 1 year to document stability. 4. Moderate atherosclerosis of the LAD coronary artery. Abdomen/Pelvis CT 05/21/25 15:29 IMPRESSION: No acute process in the abdomen or pelvis. Lumbar Spine CT 05/21/25 15:29 IMPRESSION: Posterior spinal fusion from L2-L5. No acute fracture. Heterogeneous appearance of the posterior elements at the postsurgical levels. Mild subcutaneous stranding and fullness of the paraspinal muscles without discrete organized collection. Laboratory Results WBC 11.35 10^3/uL (3.29-11.43) 05/21/25 05:20 RBC 5.24 10^6/uL (3.85-5.65) 05/21/25 05:20 Hgb 13.20 g/dL (11.27-16.99) 05/21/25 05:20 Hct 42.4 % (36-47) 05/21/25 05:20 MCV 80.9 fl (85-98) L 05/21/25 05:20 MCH 25.2 pg (27-33) L 05/21/25 05:20 MCHC 31.1 g/dL (30-55) 05/21/25 05:20 RDW 13.2 % (12.1-15.1) 05/21/25 05:20 Plt Count 384 10^3/cmm (157-399) D 05/21/25 05:20 MPV 9.8 fL (7.4-10.4) 05/21/25 05:20 Neut % (Auto) 89.6 % 05/21/25 05:20 Lymph % (Auto) 7.6 % 05/21/25 05:20 [place] % (Auto) 2.0 % 05/21/25 05:20 Eos % (Auto) 0.0 % 05/21/25 05:20 Baso % (Auto) 0.4 % 05/21/25 05:20 Neut # (Auto) 10.17 10^3/uL (1.8-7.7) H 05/21/25 05:20 Lymph # (Auto) 0.9 10^3/uL (0.8-4.8) 05/21/25 05:20 [place] # (Auto) 0.2 10^3/uL (0.2-0.9) 05/21/25 05:20 Eos # (Auto) 0.0 10^3/uL (0.0-0.8) 05/21/25 05:20 Baso # (Auto) 0.1 10^3/uL (0.0-0.1) 05/21/25 05:20 Nucleated RBC % (auto) 0 % 05/21/25 05:20 Nucleated RBCs # 0.0 /100WBC 05/21/25 05:20 D-Dimer 1.05 ug/mLFEU (0-0.59) H 05/20/25 23:25 Sodium 140 mmol/L (136-145) 05/21/25 05:20 Potassium 4.6 mmol/L (3.5-5.1) 05/21/25 05:20 Chloride 101 mmol/L (98-107) 05/21/25 05:20 Carbon Dioxide 22 mmol/L (22-29) 05/21/25 05:20 Anion Gap 21.6 (5-19) H 05/21/25 05:20 BUN 11 mg/dL (8-23) 05/21/25 05:20 Creatinine 1.3 mg/dL (0.5-0.9) H 05/21/25 05:20 GFR Calculation Not Reportable 05/21/25 05:20 Glucose 186 mg/dL (65-115) H 05/21/25 05:20 POC Glucose 157 mg/dL (70-110) H 05/20/25 23:03 Calculated Osmolality 294 mOsm/kg (285-295) 05/21/25 05:20 Lactic Acid 2.9 mmol/L (0.5-2.2) H 05/20/25 20:58 Lactic Acid (Sepsis) 4.1 mmol/L (0.5-2.2) H* 05/20/25 23:25 Calcium 10.2 mg/dL (8.5-10.5) 05/21/25 05:20 Magnesium 1.8 mg/dL (1.7-2.3) 05/21/25 05:20 Total Bilirubin 0.5 mg/dL (0.15-1.2) 05/21/25 05:20 AST 33 U/L (0-32) H 05/21/25 05:20 ALT 21 U/L (0-33) 05/21/25 05:20 Alkaline Phosphatase 176 U/L (35-105) H 05/21/25 05:20 Troponin T 5th Gen ng/L 10 ng/L (0-10) 05/20/25 23:25 C-Reactive Protein 3.0 mg/L (0.0-4.9) 05/20/25 19:00 Total Protein 7.6 g/dL (6.6-8.7) 05/21/25 05:20 Albumin 4.6 g/dL (3.5-5.2) 05/21/25 05:20 Globulin 3.0 g/dL (1.3-4.6) 05/21/25 05:20 Procalcitonin 0.12 ng/mL (0-0.5) 05/20/25 19:00 TSH 0.93 uIU/mL (0.27-4.20) 05/20/25 19:00 Urine Color Yellow (Yellow) 05/20/25 19: Urine Appearance Clear (CLEAR) 05/20/25 19:26 Urine pH 7.5 (5-7) 05/20/25 19:26 Ur Specific [place] 1.005 (1.005-1.030) 05/20/25 19:26 Urine Protein Negative (Negative) 05/20/25 19:26 Urine Glucose (UA) Negative (Normal) 05/20/25 19:26 Urine Ketones Negative (Negative) 05/20/25 19:26 Urine Blood Negative (Negative) 05/20/25 19:26 Urine Nitrate Negative (Negative) 05/20/25 19:26 Urine Bilirubin Negative (Negative) 05/20/25 19:26 Urine Urobilinogen 0.2 mg/dL (Negative) 05/20/25 19:26 Ur Leukocyte Esterase Negative (Negative) 05/20/25 19:26 Urine RBC 0-2 /hpf (0-2) 05/20/25 19:26 Urine WBC 0-5 /hpf (0-5) 05/20/25 19:26 Ur Squamous Epith Cells 0-5 /hpf (0-5) 05/20/25 19:26 Amorphous Sediment Not Reportable 05/20/25 19:26 Urine Bacteria None seen /hpf (NONE) 05/20/25 19:26 Hyaline Casts 0-4 /lpf H 05/20/25 19:26 Influenza A (PCR) Negative (Negative) 05/20/25 21:57 Influenza Type B (PCR) Negative (Negative) 05/20/25 21:57 RSV (PCR) Negative (Negative) 05/20/25 21:57 SARS-CoV-2 (PCR) Negative (Negative) 05/20/25 21:57 Discharge Plan Discharge Patient Disposition: Admitted As Inpatient Admit Provider: Una Jenkins Clinical Impression: Acute hyperkalemia, Hypertensive urgency, Tachycardia Condition: Stable Discharge Diet: Cardiac Discharge Activity: Resume usual activity Coding Level of Care Code ED Pocket Cutter for Moon Epperson
[2025-05-20 12:17] LABS: Hematocrit 40.9 % (36-47); Hemoglobin 12.40 g/dL (11.27-16.99); Mean Corpuscular HGB Conc 30.3 g/dL (30-55); Mean Corpuscular Hemoglobin 25.1 pg (27-33); Mean Corpuscular Volume 82.6 fl (85-98); Nucleated Red Blood Cells % 0 %; Platelet Count 295 10^3/cmm (157-399); Red Blood Count 4.95 10^6/uL (3.85-5.65); White Blood Count 7.12 10^3/uL (3.29-11.43)
[2025-05-20 12:33] LABS: Alanine Aminotransferase 22 U/L (0-33); Albumin Level 4.5 g/dL (3.5-5.2); Alkaline Phosphatase 174 U/L (35-105); Anion Gap 14.0 (5-19); Aspartate Amino Transferase 46 U/L (0-32); Blood Urea Nitrogen 9 mg/dL (8-23); Calcium 10.2 mg/dL (8.5-10.5); Carbon Dioxide 27 mmol/L (22-29); Chloride 100 mmol/L (98-107); Globulin 2.8 g/dL (1.3-4.6); Glucose 103 mg/dL (65-115); Magnesium 2.1 mg/dL (1.7-2.3); Osmolality Calculated 277 mOsm/kg (285-295); Sodium 134 mmol/L (136-145); Total Protein 7.3 g/dL (6.6-8.7)
[2025-05-20 12:36] LABS: Potassium 7.0 mmol/L (3.5-5.1)
[2025-05-20] MEDS: sodium bicarbonate 50 MEQ in dextrose 5% 250 ML 600 MEQ IV (12:58)
[2025-05-20] MEDS: calcium gluconate 0.1 gm/mL 10% SDV 10mL 2 GM IVP (13:02)
[2025-05-20] MEDS: insulin regular-human 100 units/1 mL 10 UNIT IVP (14:45)
[2025-05-20] MEDS: metoprolol tartrate 1 mg/1 mL SDV 5 mL 5 MG IVP ×2 (15:51→21:00)
[2025-05-20 16:32] LABS: Potassium 5.7 mmol/L (3.5-5.1)
[2025-05-20] MEDS: FUROsemide 10 mg/mL SDV 4mL 40 MG IVP (16:51)
[2025-05-20] MEDS: hyDRALAzine 20 mg/mL INJ 1 mL 10 MG IVP (17:47)
--- NOTE | 2025-05-20 18:22 | ECG_ITS ---
[facility] Test Date: 2025-05-20 Pat Name: Ana Grissom Department: Room: Gender: Female Aluminizer: : 1950 Requested By: Darlyn De Leon Order Number: [id number] Rodríguez MD: Tutu Cisneros M.D. Measurements Intervals [place] Rate: 101 P: 17 [place]: 160 QRS: -30 QRSD: 72 T: 44 QT: 319 QTc: 415 Interpretive Statements SINUS TACHYCARDIA POSSIBLE LEFT ATRIAL ENLARGEMENT [-0.1mV P-WAVE IN V1/V2] BORDERLINE LEFT AXIS DEVIATION [QRS AXIS < -20] POSSIBLE LEFT VENTRICULAR HYPERTROPHY [VOLTAGE CRITERIA PLUS LAE OR QRS WIDENING] Compared to ECG 05/20/2025 12:17:01 Sinus rhythm no longer present Electronically Signed On 05-21-2025 18:51:23 [employer] ARCHITECT by Tutu Cisneros M.D. [email or web address]
[2025-05-20] MEDS: hyDRALAzine 20 mg/mL INJ 1 mL IVP (18:40)
[2025-05-20] MEDS: labetalol 5 mg/mL SDV 20mL 10 MG IVP (19:01)
[2025-05-20] MEDS: LORazepam 2 mg/mL INJ 1 mL 0.5 MG IVP (19:02)
[2025-05-20 19:50] LABS: Glucose Urine UA Negative (Normal); Nitrate Urine Negative (Negative); Specific Gravity, Urine 1.005 (1.005-1.030)
[2025-05-20 19:52] LABS: Add Urine Microscopic? YES
[2025-05-20] MEDS: oxyCODONE-APAP 5-325 mg Tablet 1 TAB PO (19:54)
[2025-05-20] MEDS: ondansetron 2 mg/ML SDV 2 mL 4 MG IVP ×2 (19:54→23:40)
--- NOTE | 2025-05-20 20:10 | PM.HP ---
Providers/Chief Complaint Admitting Physician: Una Jenkins MD Primary Care Provider: Iam Tyson MD Chief Complaint: abn labs History of Present Illness Ana Grissom is a 74 year old female with PMHx of HTN, alpha gal, dysrhythmia, hypothyroidism (s/p thyroidectomy), chronic back pain, inflammatory arthritis, fibromyalgia Patient presented to the ED per recommendations from her PCP (Dr. Tyson) due to critical hyperkalemia. Per review of ED notes and confirmation from patient's spouse she was recently round to have low potassium and was placed on twice daily potassium supplementation, lab draw was in follow-up for potassium repletion. Potassium on admission 7.0. Subsequently she underwent emergent management, including calcium gluconate, IV insulin w/ dextrose, Kayexalate, and 1L NS bolus, and continuous albuterol. Repeat potassium level decreased to 5.7. Thereafter, she received IV furosemide 40 mg with further reduction in potassium to 5.2. Obtaining history was challenging as the patient demonstrated difficulty providing a clear, linear history. In further discussion, she revealed a 3 week history of intermittent chills (no known fever). Notes back surgery on 04/01/25 with continued back pain. Reports generalized weakness. Notes to become easily fatigued, especially with exertion. Denies chest pain and exertional dyspnea. Does not endorse paresthesia or loss of bowel / bladder function. Reports recent exposure to COVID. Deneis URI symptoms. Endorses presence of a headache and urinary frequency. Denies N/V/?D and abdominal pain. Reports history of a her heart running away with itself, which her spouse translated to mean a fluctuating heart rate for which she takes metoprolol. She denies history of cardiac disease or any prior cardiac work-up. Her BP at home typically runs 160-90s. ED Course reviewed VS Trend T 98.1F SBP ~140-170 DBP ~80-110 HR 61-126 RR 16-18 EKG #1 SR EKG #2 ST (rate 101) Labs 05/20/25 1206 Hemogram WBC 7.12 RBC 4.95 PLT 295 HBG 12.40 HCT 40.9 Chemistry Na 134 K 7.0 Mg 2.1 Cl 100 Ca 10.2 Glu 103 CO2 27 AG 14.0 BUN 9 Cr 1.1 AST 46 ALT 22 ALP 174 T.Bili 0.4 Alb 4.5 T.Protein 7.3 Urinalysis Not indicative of infectious process In ED patient received... 1237 2 gm calcium gluconate 1237 insulin 10 units 1237 sodium bicarb 50 mEq in dextrose 1244 kayexalate 15 gm 1244 NS 1L bolus 1245 albuterol 2.5 mg (continuous) 1300 sodium bicarbonate 50 mEq in dextrose 1445 insulin 10 units 1513 metroprolol 5 mg IVP 1641 furosemide 40 mg IV 1739 metoprolol 25 mg PO x1 1825 hydralazine 20 mg IV x1 1846 labetalol 10 mg IVP 1845 lorazepam 0.5 mg IV x1 1857 NS 1L bolus 1911 Percocet 5/325 1950 ondansetron 4 mg IV Review of Systems General: Reports: 10 or more systems reviewed and unremarkable except in HPI and below Medications/Allergies Home Medications ?Medication ?Instructions ?Recorded ?Confirmed ?Last Taken ?Type ezetimibe 10 mg tablet 10 mg PO DAILY 12/31/23 05/20/25 05/20/25 History levothyroxine 50 mcg tablet 50 mcg PO QAM 12/31/23 05/20/25 05/20/25 History dicyclomine 10 mg capsule 10 mg PO BID 03/03/24 05/20/25 05/20/25 History pantoprazole 40 mg tablet,delayed 40 mg PO DAILY #90 tabs 03/03/24 05/20/25 05/20/25 Rx release tramadol 50 mg tablet 50 mg PO BID PRN pain (scale score 10/19/24 05/20/25 02/02/25 Rx 7-10) #60 tabs metoprolol tartrate 25 mg tablet 25 mg PO BID 02/03/25 05/20/25 05/20/25 History tizanidine 4 mg tablet 4 mg PO BID 02/03/25 05/20/25 05/20/25 History alprazolam 0.5 mg tablet 0.5 mg PO BEDTIME PRN Sleep 05/20/25 05/20/25 Unknown History fluoxetine 10 mg capsule 10 mg PO DAILY 05/20/25 05/20/25 05/20/25 History losartan 25 mg tablet 25 mg PO BID 05/20/25 05/20/25 05/20/25 History Allergies Allergy/AdvReac Type Severity Reaction Status Date / Time Sulfa (Sulfonamide Allergy Severe ALGY-Rash Verified 05/20/25 11:55 Antibiotics) bee venom protein (honey bee) Allergy Intermediate ALGY-Swell Verified 05/20/25 11:55 Lip/Tongue/Throat Alpha-Gal Allergy Unknown Verified 05/20/25 11:55 (Mlwtopcrq-Ltfpe-2,3-Gala allopurinol AdvReac Intermediate tongue raw Verified 05/20/25 11:55 and loss of taste colchicine AdvReac Intermediate ADR-Dry Verified 05/20/25 11:55 Mucus Membranes febuxostat AdvReac Intermediate ADR-Dry Verified 05/20/25 11:55 Mucus Membranes PFSH Acute PFSH: Medical History Immunization counseling Positive JEN (antinuclear antibody) High risk medication use Hx of gout Inflammatory arthritis Osteoarthritis Fibromyalgia Hypertension Tachycardia Aortic aneurysm Surgical History History of partial thyroidectomy Previous back surgery Hx of hysterectomy Hx of cholecystectomy Hx of hemorrhoidectomy Hx of section Hx of knee surgery Social History Smoking and tobacco/nicotine status: never used tobacco/nicotine Alcohol intake: never Substance/Drug Use: never Vitals/I&O/Wt Last Vital Signs Temp 98.1 F 05/20/25 11:51 Pulse 142 H 05/20/25 20:04 Resp 18 05/20/25 20:04 BP 181/105 05/20/25 20:04 Pulse Ox 98 05/20/25 20:04 O2 Del Method Room Air 05/20/25 19:56 05/20/25 05/20/25 05/20/25 06:59 14:59 22:59 Intake Total 0 / 0 1425 / 1425 Balance 0 / 0 1425 / 1425 Weight last 48 hrs Weight 72.121 kg Physical Exam Narrative: Constitutional: Frail and somewhat ill appearing Neurorogic: Awake and alert. Oriented x3. No facial asymmetry, unilateral weakness or speech deficits. Head NC/AT Eyes PERRLA. EOMI. Sclera anicteric. ENT Normal external ears. Hearing intact to normal voice. Normal external nose. No epistaxis. MMM. Respiratory Diminished. No accessory muscle use. On room air. Heart / CV Tachycardic. HR on monitor 120. No murmur. Extremities No edema bilaterally Abdomen / GI Soft. NT. ND. +BS Genitourinary + suprapubic tenderness Musculoskeletal Moves all extremities. Gait steady. No paresthesia. Data 05/20/25 12:06 05/20/25 19:00 A&P Assessment and plan 1. Acute hyperkalemia: 2. Tachycardia: 3. Chills (without fever): 4. Postoperative hypothyroidism: 5. Chronic back pain: Plan: # Hyperkalemia K 7.0 -> 5.7 -> 5.2 - improved # Tachycardia History of some type of dysrhythmia Received multiple doses of BB in ED Received 2L NS IVF bolus Patient asymptomatic - give one dose of IV metoprol 5 mg - will check electrolytes - check Trop and D-Dimer - monitor for now, ok if stays 120 or less infectious work-up initiated # Chills Three week history of chills, with active chills at time of evaluation. S/p recent back surgery. 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 Given complexity of patient's presentation, co-morbid condition, and required intensity of treatment, a hospitalization less than two midnights is anticipated. Time Spent in Patient Care: 137 minutes was spent providing care for this patient. This time included direct interview and evaluation, review of laboratory and diagnostic results, assessment of the ED course, coordination of care with the nursing staff, discussion of the case with the night provider, as well as all other necessary activities for the medical decision making and management. Coding Level of Care Code 74777 Diagnoses Acute hyperkalemia E87.5 Tachycardia R00.0 Chills (without fever) R68.83 Postoperative hypothyroidism E89.0 Hypothyroidism type: postoperative Chronic back pain M54.9; G89.29 Time Spent (min) 137
[2025-05-20 21:38] LABS: Procalcitonin 0.12 ng/mL (0-0.5)
[2025-05-20 21:43] LABS: Lactic Sepsis W/Reflex 2.9 mmol/L (0.5-2.2)
[2025-05-20 21:59] LABS: Potassium 5.2 mmol/L (3.5-5.1)
--- NOTE | 2025-05-20 21:59 | XRR_ITS ---
PROCEDURE INFORMATION: Exam: XR Chest Exam date and time: 05/20/2025 11:16 PM Age: 74 years old Clinical indication: Pain; Angina pectoris; Additional info: Chills, chest pain TECHNIQUE: Imaging protocol: Radiologic exam of the chest. Views: 1 view. COMPARISON: CT chest abd [id number] 01/15/2024 1:25 PM FINDINGS: Lungs: Unremarkable. No consolidation. Pleural spaces: Unremarkable. No pleural effusion. No pneumothorax. Heart/Mediastinum: Unremarkable. No cardiomegaly. Bones/joints: Unremarkable. XR/XR chest 1V portable [id number] IMPRESSION: No acute findings.
[2025-05-20 22:15] LABS: Alanine Aminotransferase 24 U/L (0-33); Albumin Level 4.5 g/dL (3.5-5.2); Alkaline Phosphatase 185 U/L (35-105); Anion Gap 25.2 (5-19); Aspartate Amino Transferase 47 U/L (0-32); Blood Urea Nitrogen 9 mg/dL (8-23); Calcium 10.7 mg/dL (8.5-10.5); Carbon Dioxide 18 mmol/L (22-29); Chloride 99 mmol/L (98-107); Globulin 3.2 g/dL (1.3-4.6); Glucose 124 mg/dL (65-115); Osmolality Calculated 284 mOsm/kg (285-295); Sodium 137 mmol/L (136-145); Total Protein 7.7 g/dL (6.6-8.7)
[2025-05-20 22:49] LABS: Reflex Lactate Order REFLEX LACTIC ORDERD
[2025-05-20 23:02] LABS: Respiratory Syncytial Virus Ce NEGATIVE (Negative); SARS-CoV-2 PCR NEGATIVE (Negative)
[2025-05-20 23:06] LABS: Add On to Lab Order(s) Added
[2025-05-20 23:35] LABS: Magnesium 1.9 mg/dL (1.7-2.3); Thyroid Stimulating Hormone 0.93 uIU/mL (0.27-4.20)
[2025-05-20] MEDS: HYDROmorphone 0.5 MG/0.5 ML INJ IVP (23:40)
[2025-05-20 23:56] LABS: Troponin T (5th) Once 10 ng/L (0-10)
[2025-05-21] VITALS (106 sets, daily range): BP systolic 95–210; BP diastolic 61–122; PULSE 80–141; RESP 12–29; TEMP 36.6–37.4; O2SAT 74–100; BMI 25.8
[2025-05-21 00:01] LABS: Lactic Acid level (Lactate) 4.1 mmol/L (0.5-2.2)
--- NOTE | 2025-05-21 00:05 | CTR_ITS ---
PROCEDURE INFORMATION: Exam: CTA Chest With Contrast Exam date and time: 05/21/2025 1:21 AM Age: 74 years old Clinical indication: Shortness of breath TECHNIQUE: Imaging protocol: Computed tomographic angiography of the chest with contrast. Exam focused on the arteries. 3D rendering (Not supervised by radiologist): MIP and/or 3D reconstructed images were created by the technologist. Radiation optimization: All CT scans at this facility use at least one of these dose optimization techniques: automated exposure control; mA and/or kV adjustment per patient size (includes targeted exams where dose is matched to clinical indication); or iterative reconstruction. Contrast material: OMNI 350; Contrast volume: 100 ml; Contrast route: INTRAVENOUS (IV); COMPARISON: CT angio chest [id number] 10/14/2023 12:23 PM RADIATION DOSE METRICS: Total DLP (mGy-cm): 382.91 FINDINGS: Pulmonary arteries: No acute pulmonary embolus is identified. Aorta: A 4.0 cm ascending thoracic aortic ectasia/aneurysm. No evidence of acute aneurysmal instability. Mild atherosclerotic changes of the thoracic aorta and its major branch vessels is noted. Lungs: Unremarkable. No consolidation. No masses. Pleural spaces: Unremarkable. No pneumothorax. No pleural effusion. Heart: Unremarkable. No cardiomegaly. No pericardial effusion. Coronary arteries: Moderate atherosclerosis of the left anterior descending artery (LAD) is present. Lymph nodes: Unremarkable. No enlarged lymph nodes. Gallbladder and biliary ducts: The gallbladder is surgically absent. Bones/joints: Partially imaged lumbar spinal fusion hardware. Degenerative joint and disc disease is seen in the imaged spine. Soft tissues: Unremarkable. CT/CT angio chest PE protcl [id number] IMPRESSION: 1. No acute pulmonary embolus or evidence of acute right heart strain. 2. No acute process in the chest is identified to explain the patient's symptoms. 3. Ascending aortic aneurysm measuring less than 5 cm. Recommend follow-up imaging in 1 year to document stability. 4. Moderate atherosclerosis of the LAD coronary artery.
[2025-05-21] MEDS: cefepime 2,000 mg SDV 2000 MG IVP (00:14)
[2025-05-21] MEDS: nicardipine 20 MG/200 ML PREMIX 50 MG IV (00:39)
[2025-05-21] MEDS: iohexol 350 mg/mL 500 mL Btl (per mL) IV ×2 (01:28→19:16)
[2025-05-21] MEDS: LOSARTAN 25 MG TABLET PO ×2 (04:44→16:27)
[2025-05-21] MEDS: HYDROmorphone 0.5 MG/0.5 ML INJ IVP ×2 (05:22→14:04)
[2025-05-21 05:41] LABS: Hematocrit 42.4 % (36-47); Hemoglobin 13.20 g/dL (11.27-16.99); Mean Corpuscular HGB Conc 31.1 g/dL (30-55); Mean Corpuscular Hemoglobin 25.2 pg (27-33); Mean Corpuscular Volume 80.9 fl (85-98); Nucleated Red Blood Cells % 0 %; Platelet Count 384 10^3/cmm (157-399); Red Blood Count 5.24 10^6/uL (3.85-5.65); White Blood Count 11.35 10^3/uL (3.29-11.43)
[2025-05-21 06:03] LABS: Alanine Aminotransferase 21 U/L (0-33); Albumin Level 4.6 g/dL (3.5-5.2); Alkaline Phosphatase 176 U/L (35-105); Anion Gap 21.6 (5-19); Aspartate Amino Transferase 33 U/L (0-32); Blood Urea Nitrogen 11 mg/dL (8-23); Calcium 10.2 mg/dL (8.5-10.5); Carbon Dioxide 22 mmol/L (22-29); Chloride 101 mmol/L (98-107); Globulin 3.0 g/dL (1.3-4.6); Glucose 186 mg/dL (65-115); Magnesium 1.8 mg/dL (1.7-2.3); Osmolality Calculated 294 mOsm/kg (285-295); Potassium 4.6 mmol/L (3.5-5.1); Sodium 140 mmol/L (136-145); Total Protein 7.6 g/dL (6.6-8.7)
--- NOTE | 2025-05-21 06:36 | PC.NURSE ---
Dr Mandujano notified about patient bp and hr. cardene gtt was turned off and monitor hr per
--- NOTE | 2025-05-21 06:48 | PC.NURSE ---
Metoprolol was given early per Dr Mandujano.
--- NOTE | 2025-05-21 08:02 | PHA.VACGOAL ---
Vancomycin Goal - Goal Vancomycin Goal:: 15-20 mg/L Vancomycin Indication:: Other - Therapy Current therapy:: Cefepime Day of therpy:: Day []of [] . Actual body weight (kg): 160 lb 0.889 oz - Data Labs: WBC 11.35 10^3/uL (3.29-11.43) 05/21/25 05:20 RBC 5.24 10^6/uL (3.85-5.65) 05/21/25 05:20 Hgb 13.20 g/dL (11.27-16.99) 05/21/25 05:20 Hct 42.4 % (36-47) 05/21/25 05:20 MCV 80.9 fl (85-98) L 05/21/25 05:20 MCH 25.2 pg (27-33) L 05/21/25 05:20 MCHC 31.1 g/dL (30-55) 05/21/25 05:20 RDW 13.2 % (12.1-15.1) 05/21/25 05:20 Sodium 140 mmol/L (136-145) 05/21/25 05:20 Potassium 4.6 mmol/L (3.5-5.1) 05/21/25 05:20 Chloride 101 mmol/L (98-107) 05/21/25 05:20 Carbon Dioxide 22 mmol/L (22-29) 05/21/25 05:20 Anion Gap 21.6 (5-19) H 05/21/25 05:20 BUN 11 mg/dL (8-23) 05/21/25 05:20 Creatinine 1.3 mg/dL (0.5-0.9) H 05/21/25 05:20 GFR Calculation Not Reportable 05/21/25 05:20 Last dialysis session:: N/A Treatment plan:: new consult Regimen:: INITIAL LOADING DOSE OF 1500 MG X 1 MAINTENANCE DOSE OF 1250 MG Q24H PER TELEPHARMACY Follow up:: WILL CONTINUE TO MONITOR AND FOLLOW UP DAILY
[2025-05-21] MEDS: cefepime 1,000 mg SDV 1000 MG IVP ×2 (11:56→23:57)
[2025-05-21] MEDS: oxyCODONE-APAP 5-325 mg Tablet 1 TAB PO (11:57)
--- NOTE | 2025-05-21 12:30 | USCV_ITS ---
Ana Grissom Age: 74 Gender: F : 1950 Exam Date: 05/21/2025 17:15 Ordering Phys: Una Jenkins MD Technologist: Chet Ayala Exam Location: [facility] [place] Indication: tachycardia BP: 193 / 99 HR: 92 Rhythm: Other Technical Quality: Adequate MEASUREMENTS (Male / Female) Normal Values 2D ECHO LV Diastolic Diameter PLAX 4.6 cm 4.2 - 5.9 / 3.9 - 5.3 cm IVS Diastolic Thickness 0.9 cm 0.6 - 1.0 / 0.6 - 0.9 cm IVS Systolic Thickness 1.2 cm LVPW Diastolic Thickness 0.9 cm 0.6 - 1.0 / 0.6 - 0.9 cm LVPW Systolic Thickness 1.5 cm LVOT Diameter 2.0 cm LV Ejection Fraction 2D Teich 64.9 % LV Ejection Fraction MOD 4C 73.8 % LV Ejection Fraction MOD 2C 78.3 % LV Ejection Fraction 2C AL 78.4 % LA Diameter 4.6 cm RA Systolic Volume 4C AL 31.8 ml RA Systolic Volume 4C MOD 31.3 ml LA Sys Volume AL 37.0 cm cubed LA Sys Volume Index AL 20.0 cm cubed/m squared Aorta at Sinotubular Diameter 3.0 cm IVC Diameter 1.5 cm M-MODE LA Ao Ratio MM 1.5 AV Cusp Separation MM 1.8 cm DOPPLER AV Peak Velocity 146.0 cm/s LVOT Peak Velocity 109.0 cm/s AV Area Cont Eq vti 2.0 cm squared AV Area Cont Eq pk 2.3 cm squared MV Peak Velocity 129.0 cm/s TV Peak Velocity 215.0 cm/s TR Peak Velocity 260.0 cm/s TR Peak Gradient 27.0 mmHg TR Mean Velocity 211.0 cm/s TR Mean Gradient 18.9 mmHg TR Velocity Time Integral 56.3 cm PV Peak Velocity 110.7 cm/s RV Ejection Time 0.3 s FINDINGS Left Ventricle Normal left ventricular size, systolic function and wall thickness, with no regional wall motion abnormalities. Left ventricular ejection fraction is estimated at 60 %. Grade III/IV diastolic dysfunction (restrictive filling pattern), severely elevated filling pressures. Right Ventricle Normal right ventricular size and systolic function. Right Atrium Normal right atrial size. Left Atrium Normal left atrial size. IA Septum Normal appearance of the interatrial septum. Mitral Valve Moderately thickened mitral valve. No mitral valve stenosis. Mild mitral valve regurgitation. Aortic Valve Normal aortic valve structure. No aortic valve stenosis or regurgitation. Tricuspid Valve Normal tricuspid valve structure. No tricuspid valve stenosis or regurgitation. Normal pulmonary pressure. Pulmonic Valve Normal pulmonic valve structure. No pulmonic valve stenosis or regurgitation. Pericardium No pericardial effusion. Aorta Normal diameter of the aortic root and ascending thoracic aorta. IVC Normal IVC diameter. CONCLUSIONS Normal left ventricular size, systolic function and wall thickness, with no regional wall motion abnormalities. Left ventricular ejection fraction is estimated at 60 %. Grade III/IV diastolic dysfunction (restrictive filling pattern), severely elevated filling pressures. Moderately thickened mitral valve. No mitral valve stenosis. Mild mitral valve regurgitation. There is no pericardial effusion. Right atrial pressure is around 5 mm of mercury. Alen Barros MD (Electronically Signed) Final Date: 22 May 2025 18:22 S
[2025-05-21] MEDS: ondansetron 2 mg/ML SDV 2 mL 4 MG IVP (14:04)
--- NOTE | 2025-05-21 15:29 | CTR_ITS ---
PROCEDURE INFORMATION: Exam: CT Abdomen And Pelvis With Contrast Exam date and time: 05/21/2025 7:03 PM Age: 74 years old Clinical indication: Abdominal pain TECHNIQUE: Imaging protocol: Computed tomography of the abdomen and pelvis with contrast. Radiation optimization: All CT scans at this facility use at least one of these dose optimization techniques: automated exposure control; mA and/or kV adjustment per patient size (includes targeted exams where dose is matched to clinical indication); or iterative reconstruction. Contrast material: OMNI 350; Contrast volume: 100 ml; Contrast route: INTRAVENOUS (IV); COMPARISON: CT abdomen pelvis wo con [id number] 02/03/2025 10:02 AM RADIATION DOSE METRICS: Total DLP (mGy-cm): 590.16 FINDINGS: Lungs: Visualized lung bases are unremarkable. Liver: Normal. No mass. Gallbladder and biliary ducts: The gallbladder is surgically absent. No biliary ductal dilation. Pancreas: No main pancreatic duct dilation. Area of probable focal fat infiltration in the pancreas, unchanged. Spleen: The spleen measures near the upper limits of normal in size. Adrenal glands: No adrenal nodule. Kidneys and ureters: No hydronephrosis. Symmetric nephrograms. Stomach and bowel: No bowel obstruction. No mucosal thickening. Appendix: No evidence of appendicitis. Intraperitoneal space: No free air. No free fluid. Vasculature: No aortic aneurysm. Atherosclerosis. Lymph nodes: No lymphadenopathy by CT size criteria. Urinary bladder: Unremarkable as visualized. Reproductive: The uterus is not visualized. No adnexal mass. Bones/joints: Prior L2 through L5 posterior spinal fusion. No acute fracture. Soft tissues: Unremarkable. CT/CT abdomen pelvis w con* [id number] IMPRESSION: No acute process in the abdomen or pelvis.
--- NOTE | 2025-05-21 15:29 | CTR_ITS ---
PROCEDURE INFORMATION: Exam: CT Lumbar Spine Without Contrast Exam date and time: 05/21/2025 7:03 PM Age: 74 years old Clinical indication: Sepsis, recent spine surgery TECHNIQUE: Imaging protocol: Computed tomography of the lumbar spine without contrast. Radiation optimization: All CT scans at this facility use at least one of these dose optimization techniques: automated exposure control; mA and/or kV adjustment per patient size (includes targeted exams where dose is matched to clinical indication); or iterative reconstruction. COMPARISON: CR XR lumbar spine 2-3V* [id number] 03/03/2024 2:39 PM RADIATION DOSE METRICS: Total DLP (mGy-cm): 590.16 FINDINGS: Bones/joints: Posterior spinal fusion extending from L2 through L5. Vertebral body heights are preserved. No acute fracture. Heterogeneous appearance of the posterior elements at L2, L3 L4 and L5. There is up to moderate spinal canal narrowing at L3-L4. There is up to moderate neural foraminal narrowing of the bilateral L3-L4 neural foramen. Soft tissues: Mild subcutaneous stranding and edema overlying the posterior soft tissues. No discrete or organized collection. There is slight fullness of the paraspinal muscles without discrete collection. CT/CT lumbar spine recon [id number] IMPRESSION: Posterior spinal fusion from L2-L5. No acute fracture. Heterogeneous appearance of the posterior elements at the postsurgical levels. Mild subcutaneous stranding and fullness of the paraspinal muscles without discrete organized collection.
[2025-05-21] MEDS: labetalol 5 mg/mL SDV 20mL 10 MG IVP (16:27)
--- NOTE | 2025-05-21 16:42 | P.PN_ITS ---
Subjective 2 Subjective: 74-year-old female who presented to the ER from primary care recommendations for hyperkalemia. ER reported elevated potassium due to supplementation. Treatment was given. Her potassium improved. Subsequently patient was noted to become tachycardic. And had increased nausea. She was admitted for observation. Since her admission her potassium has been stable. Her issues have been tachycardia as well as hypertension. Concern for sepsis. The patient was eventually started on antibiotics and fluids. She was seen with family today. She was noted to have some nausea. Was also noted to have elevated blood pressure. Vitals/I&O/Wt Last Vital Signs Temp 98.1 F 05/21/25 16:00 Pulse 94 05/21/25 16:00 Resp 15 05/21/25 16:00 BP 193/99 05/21/25 16:00 Pulse Ox 93 05/21/25 16:00 O2 Del Method Room Air 05/21/25 04:00 05/21/25 05/21/25 05/21/25 06:59 14:59 22:59 Intake Total 407.417 / 2832.417 360 / 360 Output Total 1000 / 1000 600 / 600 Balance -592.583 / 1832.417 -240 / -240 Weight last 48 hrs Weight 72.6 kg Weight 75.2 kg Weight 72.121 kg Physical Exam 2 Const: COMMON NORMALS: no acute distress and patient oriented x3 Chest: COMMONS NORMALS: normal inspection of the chest Resp: COMMON NORMALS: normal respiratory effort, No retractions, No use of accessory muscles and clear to auscultation bilaterally AUSCULTATION: clear to auscultation bilaterally Cardio: RATE: tachycardic GI: COMMON NORMALS: Soft to palpation INSPECTION: Yes normal to inspection PALPATION: Yes Soft to palpation and No Tenderness to palpation present (GI) Extremity: COMMON NORMALS: normal to inspection Neuro: COMMON NORMALS: patient oriented x3 Data 05/21/25 05:20 05/21/25 05:20 Micro: Microbiology 05/20/25 21:00 Blood Culture - Preliminary Blood SPECIMEN COLLECTED 05/20/25 20:58 Blood Culture - Preliminary Blood SPECIMEN COLLECTED A&P Assessment and plan 1. FUO (fever of unknown origin): 2. 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
[2025-05-22] VITALS (63 sets, daily range): BP systolic 75–165; BP diastolic 46–99; PULSE 73–111; RESP 15–26; TEMP 36.2–36.9; O2SAT 90–98; BMI 26.6
--- NOTE | 2025-05-22 03:44 | PC.NURSE ---
Patient BP has fluctuated from 101/65 to 132/76. Her last 3 bp have been 124/73, 103/66, and 111/66. They doubled her dose of metoprolol to 50mg. Dr Mandujano was notified and put in dose for 25mg instead of 50mg. Patient bp dropped to 97/63 and 95/68, Dr Mandujano notified and mtoprolol was held.
[2025-05-22] MEDS: LOSARTAN 25 MG TABLET PO (05:25)
--- NOTE | 2025-05-22 07:09 | PC.NURSE ---
Patient HR jumped up to 169. She did not sustain it for just a minute and HR returned to 90's. Strip printed and placed in her chart. Dr Mandujano notified, no new orders.
[2025-05-22 08:56] LABS: Hematocrit 37.1 % (36-47); Hemoglobin 11.20 g/dL (11.27-16.99); Mean Corpuscular HGB Conc 30.2 g/dL (30-55); Mean Corpuscular Hemoglobin 25.3 pg (27-33); Mean Corpuscular Volume 83.9 fl (85-98); Nucleated Red Blood Cells % 0 %; Platelet Count 220 10^3/cmm (157-399); Red Blood Count 4.42 10^6/uL (3.85-5.65); White Blood Count 8.27 10^3/uL (3.29-11.43)
[2025-05-22 09:17] LABS: Alanine Aminotransferase 13 U/L (0-33); Albumin Level 3.8 g/dL (3.5-5.2); Alkaline Phosphatase 128 U/L (35-105); Anion Gap 16.8 (5-19); Aspartate Amino Transferase 22 U/L (0-32); Blood Urea Nitrogen 8 mg/dL (8-23); Calcium 9.0 mg/dL (8.5-10.5); Carbon Dioxide 21 mmol/L (22-29); Chloride 104 mmol/L (98-107); Creatinine Clr Calc Pharmacy 55.8809; Globulin 2.5 g/dL (1.3-4.6); Glucose 116 mg/dL (65-115); Osmolality Calculated 285 mOsm/kg (285-295); Potassium 3.8 mmol/L (3.5-5.1); Sodium 138 mmol/L (136-145); Total Protein 6.3 g/dL (6.6-8.7)
--- NOTE | 2025-05-22 09:44 | PC.NURSE ---
Addendum entered by Tiffanie Solis RN 05/22/25 16:08: Provider has been updated that patients blood pressure has been in the normal range. Addendum entered by Tiffanie Solis RN 05/22/25 11:47: Provider is updated that patients last two blood pressures were 86/54 and 81/47. Provider ordered to give a bolus of NS 1000 ml. Addendum entered by Tiffanie Solis RN 05/22/25 10:43: Provider is updated with patients blood pressures after the bolus. Blood pressures of 81/46 and 75/47. Provider ordered midodrine 10mg. order entered. Original Note: Provider is updated about patients soft blood pressures of 93/50, 79/48, 80/46. She was given her metoprolol 24mg this morning with a blood pressure 129/73. Provider ordered a bolus of 500 NS.
[2025-05-22] MEDS: cefepime 1,000 mg SDV 1000 MG IVP ×2 (11:26→22:18)
--- NOTE | 2025-05-22 12:05 | PC.CHAP ---
Pastoral Care Encounter/Spiritual Assessment Type of Contact [] Declined clock assembler visit [] Patient/Family/Request visit [] Outpatient visit [] Follow-up visit [] Physician referral [] Code/Alert [] Routine visit [] Staff referral [] Actively dying [x] Patient sleeping [] Family support [] [] Out of room [] Palliative care [] [] Receiving care in room [] Pre-surgical visit [] Trauma [] Long length of stay [] ICU visit [] Other: Relational/Emotional Strength [] Patient feels connected with others/family/visitors/staff [] Distress [] Loneliness/isolation [] Abandonment Spirituality of Patient [] Person of Raisa [] Attends Pentecostalism of their Raisa [] Believes in Prayer [] Reads Bible or Nondenominational materials [] There are Spiritual issues to be addressed [place] Joiner Interventions [] Prayer [] Active listening [] Non-anxious presence [] Spiritual/emotional support [] Crisis/trauma care [] Spiritual counseling [] Bereavement support [] Provided bereavement packet [] Provided Bible/devotional materials [] Provided toy/stuffed animal, coloring book to patient or family member [] Provided Communion [] Anointing/[place] [] Salvation [] Completed spiritual assessment [] Other: Impact on Illness or Injury [] Angry [] Fearful [] Anxious [] Often cries [] Exhaustion [] Unable to work [] Unable to attend quaker [] Unable to walk/stand [] Unable to read [] Unable to drive [] Unable to eat/drink [] Unable to sleep [] Unable to be with family [] Patient intubated [] Other: Summary Time spent with patient
--- NOTE | 2025-05-22 12:14 | PM.PN ---
Subjective Subjective: 74-year-old female who presented to the ER from primary care recommendations for hyperkalemia. ER reported elevated potassium due to supplementation. Treatment was given. Her potassium improved. Subsequently patient was noted to become tachycardic. And had increased nausea. She was admitted for observation. Since her admission her potassium has been stable. Her issues have been tachycardia as well as hypertension. Concern for sepsis. The patient was eventually started on antibiotics and fluids. she was noted to have a decrese in BP after receiving her beta jacqueline denies chest pain, dizziness, or abdominal pain Vitals/I&O/Wt Last Vital Signs Temp 97.9 F 05/22/25 07:29 Pulse 85 05/22/25 11:42 Resp 16 05/22/25 11:42 BP 97/59 05/22/25 11:42 Pulse Ox 93 05/22/25 11:42 O2 Del Method Room Air 05/22/25 11:42 05/21/25 05/22/25 05/22/25 22:59 06:59 14:59 Intake Total 1240 / 1600 670.833 / 2270.833 1568.234 / 1568.234 Output Total 500 / 1100 500 / 500 Balance 1240 / 1000 170.833 / 8522.140 4720.234 / 1068.234 Weight last 48 hrs Weight 74.9 kg Weight 72.6 kg Weight 75.2 kg Physical Exam Const: COMMON NORMALS: no acute distress and patient oriented x3 Chest: COMMONS NORMALS: normal inspection of the chest Resp: COMMON NORMALS: normal respiratory effort, No retractions, No use of accessory muscles and clear to auscultation bilaterally AUSCULTATION: clear to auscultation bilaterally Cardio: RATE: tachycardic GI: COMMON NORMALS: Soft to palpation INSPECTION: Yes normal to inspection PALPATION: Yes Soft to palpation and No Tenderness to palpation present (GI) Extremity: COMMON NORMALS: normal to inspection Neuro: COMMON NORMALS: patient oriented x3 Data 05/22/25 08:32 05/22/25 08:32 Micro: Microbiology 05/20/25 21:00 Blood Culture - Preliminary Blood NEGATIVE TO DATE 05/20/25 20:58 Blood Culture - Preliminary Blood NEGATIVE TO DATE A&P Assessment and plan 1. FUO (fever of unknown origin): 2. Chills (without fever): Plan: #sepsis # Tachycardia #hypotension -midodrine, IVF given - unclear source, fu cx--> negative so far - check echo (pending) - TSH wnl - labs stable - continue empiric antibiotics - viral panel negative # Hypothyroidism (s/p thyroidectomy) - TSH wnl - Continue [employer] levothyroxine # Chronic back pain s/p lower back surgery 04/01/25 - resume home pain meds #hypertension #tachycardia - increased metoprolol, now back to normal dose - PRNs added #hyperkalemia - resolved - likely 2/2 oversupplementation PDMP PDMP Reviewed: Not Reviewed Attestations Medical Necessity Statement*: bp monitoring Coding Level of Care Code Acute Code for Chg Fwd Diagnoses FUO (fever of unknown origin) R50.9 Chills (without fever) R68.83
--- NOTE | 2025-05-22 17:13 | PC.NURSE ---
Provider is contacted to verify that she is due for losartan. Her current blood pressure is 140/75. She is the one that I was fighting with to raise her blood pressure. Do you want me to give the losartan 25mg or hold for tonight? Provider said to go ahead and give. When nursing was going by patient room, caught nursing in the hallway and wants me to hold it unless her blood pressure goes up. Provider is notified of this and said okay.
[2025-05-23] VITALS: BP 132/77; PULSE 77; RESP 18; TEMP 36.2
[2025-05-23 04:00] VITALS: BP 132/77; PULSE 77; RESP 18; TEMP 36.2
[2025-05-23 06:00] VITALS: PULSE 80
[2025-05-23] MEDS: LOSARTAN 25 MG TABLET PO (06:31)
[2025-05-23 07:35] VITALS: BP 132/77; PULSE 77; RESP 18; TEMP 36.2; O2SAT 93
--- NOTE | 2025-05-23 08:29 | PC.NURSE ---
04:00 close to 4am, SOURCING ASSOCIATE found pt standing up at her bedside with apx 1/3cup of blood mixed with NS fluids- noted near junction of cap is blood leaking, pt did not try to stop it, pt appeared to be mildly confused. SOURCING ASSOCIATE applied pressure then RN took over . pt calm and cooperative but disoriented. Re- oriented pt re whats going on. RR18 no resp distress. Assisted pt back to be. sBp high 170 - after pt rested for few min SPB 150's. pt used BSC and apx 300 cc yellow UO. pt apologized and said I been calling so much, I just didn't want to bother you guys... Education given to pt to cont using call light and do not get up without assistance. Re- educ fall prec.
--- NOTE | 2025-05-23 11:17 | P.DS_ITS ---
Discharge Providers Date of Admission: 05/21/25 11:09 Date of Discharge: May 23, 2025 Attending Provider at Admission: Una Jenkins MD Attending Provider at Discharge: Una Jenkins MD Primary Care Provider: Iam Tyson MD Diagnoses at Discharge Discharge Diagnosis 1. FUO (fever of unknown origin): 2. Chills (without fever): Reason for Visit Reason for Visit: abn labs Hospital Course Hospital Course 74-year-old female presented to the ER per recommendation of her primary care for hyperkalemia. Noted to be 7. Initially ER did not do treatment recommended to give fluids calcium gluconate Kayexalate insulin with dextrose as well as Lasix. Potassium had improved. ER reported that patient subsequently had developed some tachycardia and hypertension. Patient was admitted. Further history reported patient had complaints of chills concern for infection. She also had some tachycardia. Started on antibiotics sepsis workup was initiated. Her labs have been stable. During hospitalization she was noted to have variable blood pressure. She was discharged in stable condition. see dc med rec. Physical Exam Const: COMMON NORMALS: no acute distress and patient oriented x3 Chest: COMMONS NORMALS: normal inspection of the chest Resp: COMMON NORMALS: normal respiratory effort, No retractions, No use of accessory muscles and clear to auscultation bilaterally AUSCULTATION: clear to auscultation bilaterally Cardio: RATE: tachycardic GI: COMMON NORMALS: Soft to palpation INSPECTION: Yes normal to inspection PALPATION: Yes Soft to palpation and No Tenderness to palpation present (GI) Extremity: COMMON NORMALS: normal to inspection Neuro: COMMON NORMALS: patient oriented x3 Discharge Data Studies Completed and Pending Completed Studies During Hospitalization Category Date Time Status CT abdomen pelvis w con* [id number] Routine Cat Scan 05/21/25 15:29 Completed CTA chest [CT angio chest PE protcl [id number]] Stat Cat Scan 05/21/25 00:05 Completed CXRP [XR chest 1V portable [id number]] Stat Exams 05/20/25 21:59 Completed CV. echo complete* [id number] Routine Ultrasound 05/21/25 12:30 Completed Pending at discharge Category Date Time Status Blood Culture Stat Lab 05/20/25 21:00 Results Radiology Impressions Chest X-Ray 05/20/25 21:59 IMPRESSION: No acute findings. Chest CTA 05/21/25 00:05 IMPRESSION: 1. No acute pulmonary embolus or evidence of acute right heart strain. 2. No acute process in the chest is identified to explain the patient's symptoms. 3. Ascending aortic aneurysm measuring less than 5 cm. Recommend follow-up imaging in 1 year to document stability. 4. Moderate atherosclerosis of the LAD coronary artery. Abdomen/Pelvis CT 05/21/25 15:29 IMPRESSION: No acute process in the abdomen or pelvis. Lumbar Spine CT 05/21/25 15:29 IMPRESSION: Posterior spinal fusion from L2-L5. No acute fracture. Heterogeneous appearance of the posterior elements at the postsurgical levels. Mild subcutaneous stranding and fullness of the paraspinal muscles without discrete organized collection. Laboratory Results WBC 8.27 10^3/uL (3.29-11.43) 05/22/25 08:32 RBC 4.42 10^6/uL (3.85-5.65) 05/22/25 08:32 Hgb 11.20 g/dL (11.27-16.99) L 05/22/25 08:32 Hct 37.1 % (36-47) 05/22/25 08:32 MCV 83.9 fl (85-98) L 05/22/25 08:32 MCH 25.3 pg (27-33) L 05/22/25 08:32 MCHC 30.2 g/dL (30-55) 05/22/25 08:32 RDW 13.2 % (12.1-15.1) 05/22/25 08:32 Plt Count 220 10^3/cmm (157-399) D 05/22/25 08:32 MPV 9.8 fL (7.4-10.4) 05/22/25 08:32 Neut % (Auto) 61.5 % 05/22/25 08:32 Lymph % (Auto) 29.5 % 05/22/25 08:32 [place] % (Auto) 6.8 % 05/22/25 08:32 Eos % (Auto) 1.3 % 05/22/25 08:32 Baso % (Auto) 0.7 % 05/22/25 08:32 Neut # (Auto) 5.08 10^3/uL (1.8-7.7) 05/22/25 08:32 Lymph # (Auto) 2.4 10^3/uL (0.8-4.8) 05/22/25 08:32 [place] # (Auto) 0.6 10^3/uL (0.2-0.9) 05/22/25 08:32 Eos # (Auto) 0.1 10^3/uL (0.0-0.8) 05/22/25 08:32 Baso # (Auto) 0.1 10^3/uL (0.0-0.1) 05/22/25 08:32 Nucleated RBC % (auto) 0 % 05/22/25 08:32 Nucleated RBCs # 0.0 /100WBC 05/22/25 08:32 D-Dimer 1.05 ug/mLFEU (0-0.59) H 05/20/25 23:25 Sodium 138 mmol/L (136-145) 05/22/25 08:32 Potassium 3.8 mmol/L (3.5-5.1) 05/22/25 08:32 Chloride 104 mmol/L (98-107) 05/22/25 08:32 Carbon Dioxide 21 mmol/L (22-29) L 05/22/25 08:32 Anion Gap 16.8 (5-19) 05/22/25 08:32 BUN 8 mg/dL (8-23) 05/22/25 08:32 Creatinine 0.9 mg/dL (0.5-0.9) 05/22/25 08:32 GFR Calculation Not Reportable 05/22/25 08:32 Glucose 116 mg/dL (65-115) H 05/22/25 08:32 POC Glucose 112 mg/dL (70-110) H 05/23/25 11:10 Calculated Osmolality 285 mOsm/kg (285-295) 05/22/25 08:32 Lactic Acid 2.9 mmol/L (0.5-2.2) H 05/20/25 20:58 Lactic Acid (Sepsis) 4.1 mmol/L (0.5-2.2) H* 05/20/25 23:25 Calcium 9.0 mg/dL (8.5-10.5) 05/22/25 08:32 Magnesium 1.8 mg/dL (1.7-2.3) 05/21/25 05:20 Total Bilirubin 0.3 mg/dL (0.15-1.2) 05/22/25 08:32 AST 22 U/L (0-32) 05/22/25 08:32 ALT 13 U/L (0-33) 05/22/25 08:32 Alkaline Phosphatase 128 U/L (35-105) H 05/22/25 08:32 Troponin T 5th Gen ng/L 10 ng/L (0-10) 05/20/25 23:25 C-Reactive Protein 3.0 mg/L (0.0-4.9) 05/20/25 19:00 Total Protein 6.3 g/dL (6.6-8.7) L 05/22/25 08:32 Albumin 3.8 g/dL (3.5-5.2) 05/22/25 08:32 Globulin 2.5 g/dL (1.3-4.6) 05/22/25 08:32 Procalcitonin 0.12 ng/mL (0-0.5) 05/20/25 19:00 TSH 0.93 uIU/mL (0.27-4.20) 05/20/25 19:00 Urine Color Yellow (Yellow) 05/20/25 19: Urine Appearance Clear (CLEAR) 05/20/25 19: Urine pH 7.5 (5-7) 05/20/25 19: Ur Specific [place] 1.005 (1.005-1.030) 05/20/25 19:26 Urine Protein Negative (Negative) 05/20/25 19: Urine Glucose (UA) Negative (Normal) 05/20/25 19: Urine Ketones Negative (Negative) 05/20/25 19: Urine Blood Negative (Negative) 05/20/25 19: Urine Nitrate Negative (Negative) 05/20/25 19: Urine Bilirubin Negative (Negative) 05/20/25 19: Urine Urobilinogen 0.2 mg/dL (Negative) 05/20/25 19: Ur Leukocyte Esterase Negative (Negative) 05/20/25 19: Urine RBC 0-2 /hpf (0-2) 05/20/25 19:26 Urine WBC 0-5 /hpf (0-5) 05/20/25 19:26 Ur Squamous Epith Cells 0-5 /hpf (0-5) 05/20/25 19: Amorphous Sediment Not Reportable 05/20/25 19:26 Urine Bacteria None seen /hpf (NONE) 05/20/25 19:26 Hyaline Casts 0-4 /lpf H 05/20/25 19:26 Influenza A (PCR) Negative (Negative) 05/20/25 21:57 Influenza Type B (PCR) Negative (Negative) 05/20/25 21:57 RSV (PCR) Negative (Negative) 05/20/25 21:57 SARS-CoV-2 (PCR) Negative (Negative) 05/20/25 21:57 Vitals Last Vital Signs Temp 97.1 F L 05/23/25 07:35 Pulse 77 05/23/25 07:35 Resp 18 05/23/25 07:35 BP 132/77 05/23/25 07:35 Pulse Ox 93 05/23/25 07:35 O2 Del Method Room Air 05/23/25 07:35 Discharge Plan Discharge Patient Disposition: Home Condition: Stable Prescriptions: New sodium polystyrene sulfonate 15 gram powder 15 g PO BID Qty: 30 0RF cefdinir 300 mg capsule 300 mg PO BID 5 Days Qty: 10 0RF Xarelto 10 mg Tablet 10 mg PO DAILY Qty: 30 0RF Continued pantoprazole 40 mg tablet,delayed release (DR/EC) 40 mg PO DAILY Qty: 90 1RF ezetimibe 10 mg tablet 10 mg PO DAILY levothyroxine 50 mcg tablet 50 mcg PO QAM dicyclomine 10 mg capsule 10 mg PO BID tramadol 50 mg tablet 50 mg PO BID PRN (Reason: pain (scale score 7-10)) Qty: 60 1RF metoprolol tartrate 25 mg tablet 25 mg PO BID tizanidine 4 mg tablet 4 mg PO BID fluoxetine 10 mg capsule 10 mg PO DAILY alprazolam 0.5 mg tablet 0.5 mg PO BEDTIME PRN (Reason: Sleep) losartan 25 mg tablet 25 mg PO BID Discharge Order = DC NOW: Discharge Order (Routine); Ordered 05/23/25 Ordered By: Una Jenkins Referrals: Iam Tyson MD [Primary Care Provider, Family Practice] Referral Note: Discharge Diet: Cardiac Discharge Activity: Resume usual activity Patient Instructions: Opioid Safety, Pain Management, Patient Portal & Tammy Instructions Plan of Treatment: take medicines as prescribed, followup with your pcp in one week. monitor your blood pressure daily and if you have any symptoms of dizziness or lightheadedness. you may need to hold your blood pressure medicines. Discharge Attestations Time Spent in Discharge Care*: greater than 30 min Quality Metrics Clinical Quality Measures [ No reported AMI, CVA or VTE this stay] Coding Level of Care Code 25370 Diagnoses FUO (fever of unknown origin) R50.9 Chills (without fever) R68.83
[2025-05-23 11:44] VITALS: BP 132/77; PULSE 73; RESP 13; TEMP 36.3; O2SAT 96
== END 2025-05-23 11:45 | disposition home or self-care (01) ==
LOC: ER 19:09 → MEDSURG 19:59 → CSU 21:36
PROVIDERS: Nurse Practitioner Gerontology; Admitting Provider Internal Medicine; Emergency Provider Physician Assistant; PCP Family Medicine; Visit Provider Internal Medicine
DX: E87.5 Hyperkalemia (principal); K21.9 Gastro-esophageal reflux disease without esophagitis; R00.0 Tachycardia, unspecified; I10 Essential (primary) hypertension; Z91.014 Allergy to mammalian meats; E03.9 Hypothyroidism, unspecified; M79.7 Fibromyalgia
CPT/HCPCS: 36415; 36416; 71045; 71275; 74177; 80053; 81001; 82962; 83605; 83735; 84132; 84145; 84443; 84484; 85025; 85378; 86140; 87040; 87637; 93005; 93306; 94640; 96374; 96375; 96376; 99285; G0378; J0360; J0612; J0692; J0780; J1171; J1815; J1938; J2060; J2404; J2405; J3373; J3490; J7030; J7060; J7613; J7799; J9999